=== PATIENT | female | born 1975 | race American Indian/Alaskan Native ===

== ENCOUNTER 2017-01-09 16:50 | Emergency (ER) | payer MEDICARE ==
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
[2017-01-09 18:39] LABS: Anion Gap 21 mmol/L; BUN/Creatinine Ratio 15; Blood Urea Nitrogen 9 mg/dL (7-17); Calcium 9.7 mg/dL (8.4-10.2); Carbon Dioxide 23 mmol/L (22-30); Chloride 100.6 mmol/L (98-107); Glucose 91 mg/dL (65-100); Potassium 3.9 mmol/L (3.6-5.0); Sodium 141 mmol/L (137-145)
[2017-01-09 18:48] LABS: Hemoglobin 13.6 gm/dl (10.1-14.3); Mean Corpuscular HGB Conc 34 % (30-34); Mean Corpuscular Hemoglobin 31 pg (28-32); Mean Corpuscular Volume 92 fl (79-97); Platelet Count 311 K/mm3 (140-440); Red Blood Count 4.34 M/mm3 (3.65-5.03); Red Cell Distribution Width 13.7 % (13.2-15.2); White Blood Count 5.4 K/mm3 (4.5-11.0)
[2017-01-10 05:29] LABS: Urine Drugs of Abuse Note Disclamer
[2017-01-10 05:48] LABS: Bacteria,Urine 4+ /HPF (Negative); Bilirubin,Urine NEG (Negative); Blood,Urine LG (Negative); Ketones,Urine TR mg/dL (Negative); Leukocyte Esterase,Urine NEG (Negative); Mucus,Urine 1+ /HPF; Nitrite,Urine POS (Negative); Urobilinogen,Urine < 2.0 mg/dL (<2.0)
[2017-01-10 05:49] LABS: Protein,Urine >500 mg/dL (Negative)
[2017-01-10 08:42] VITALS: BP 110/69
== END 2017-01-10 09:39 ==
LOC: ED 16:50
DX: T39.312A Poisoning by propionic acid derivatives, intentional self-harm, initial encounter (principal); T38.892A Poisoning by other hormones and synthetic substitutes, intentional self-harm, initial encounter; R45.851 Suicidal ideations; F32.9 Major depressive disorder, single episode, unspecified; J44.9 Chronic obstructive pulmonary disease, unspecified; Y92.89 Other specified places as the place of occurrence of the external cause
CPT/HCPCS: 36415; 80048; 80307; 81001; 81025; 85025; 99285; G0480; 80320

== ENCOUNTER 2017-01-20 10:19 | Inpatient (IN) | payer MEDICARE ==
--- NOTE | 2017-01-20 11:47 | Emergency Department Report ---
ED General Adult HPI - General Chief complaint: Extremity Injury, Lower Stated complaint: DVT Time Seen by Provider: 01/20/17 11:28 Source: patient Mode of arrival: Stretcher Limitations: No Limitations - History of Present Illness Initial comments: Patient is 41 years old female brought from [facility] for evaluation of right lower extremity DVT. Patient had bilateral lower extremity venous duplex ultrasound on 01/18/2017 which showed deep vein thrombosis involving the right popliteal vein. Patient has a below-knee amputation before and she is complaining of swelling in her right stoma. 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 - Related Data Home Medications Medication Instructions Recorded Confirmed Last Taken Unobtainable 01/09/17 01/09/17 Unknown Allergies Allergy/AdvReac Type Severity Reaction Status Date / Time haloperidol [From Haldol] Allergy Anaphylaxis Verified 01/09/17 17:42 ziprasidone [From Geodon] Allergy Anaphylaxis Verified 01/20/17 10:47 ED Review of Systems ROS: Stated complaint: DVT Other details as noted in HPI Comment: All other systems reviewed and negative Constitutional: denies: chills, diaphoresis Respiratory: cough, shortness of breath. denies: orthopnea, SOB with exertion Cardiovascular: denies: chest pain, palpitations, dyspnea on exertion Gastrointestinal: denies: abdominal pain, nausea, vomiting, diarrhea, constipation, hematemesis Neurological: denies: headache, numbness, paresthesias ED Past Medical Hx - Past Medical History Hx COPD: Yes Additional medical history: multiple sclerosis osteomyelytis - Surgical History Additional Surgical History: right bka - Social History Smoking Status: Current Every Day Smoker Substance Use Type: Alcohol, Cocaine, Marijuana - Medications Home Medications: Home Medications Medication Instructions Recorded Confirmed Last Taken Type Unobtainable 01/09/17 01/09/17 Unknown History ED Physical Exam - General Limitations: No Limitations General appearance: alert, in no apparent distress - Head Head exam: Present: atraumatic, normocephalic, normal inspection - Eye Eye exam: Present: normal appearance, PERRL Pupils: Present: normal accommodation - ENT ENT exam: Present: normal exam, normal orophraynx, mucous membranes moist - Neck Neck exam: Present: normal inspection, full ROM. Absent: tenderness - Respiratory Respiratory exam: Present: normal lung sounds bilaterally. Absent: respiratory distress, wheezes, rales, rhonchi, stridor, chest wall tenderness, accessory muscle use, decreased breath sounds, prolonged expiratory - Cardiovascular Cardiovascular Exam: Present: regular rate, normal rhythm, normal heart sounds - GI/Abdominal GI/Abdominal exam: Present: soft, normal bowel sounds. Absent: distended, tenderness, guarding, rebound, rigid, organomegaly, mass, bruit, pulsatile mass , hernia - Extremities Exam Extremities exam: Present: normal inspection, full ROM, normal capillary refill. Absent: tenderness - Back Exam Back exam: Present: normal inspection. Absent: CVA tenderness (R), CVA tenderness (L) - Neurological Exam Neurological exam: Present: alert, oriented X3, CN II-XII intact - Psychiatric Psychiatric exam: Present: depressed - Skin Skin exam: Present: warm, intact, normal color ED Course Vital Signs 01/20/17 10:47 Temperature 98.6 F Pulse Rate 78 Respiratory 20 Rate Blood Pressure 111/67 O2 Sat by Pulse 97 Oximetry ED Medical Decision Making - Lab Data Result diagrams: 01/20/17 12:27 - Radiology Data Radiology results: report reviewed Chest x-ray showed no acute abnormality, right knee x-ray showed no acute abnormality. - Medical Decision Making Discussed with Dr. Giron, I presented the patient to him, he agreed to admit to his service. Critical care attestation.: If time is entered above; I have spent that time in minutes in the direct care of this critically ill patient, excluding procedure time. ED Disposition Clinical Impression: DVT (deep venous thrombosis), Right knee injury Disposition: - OP ADMIT IP TO THIS HOSP Is pt being admited?: Yes Condition: Stable Referrals: FLORENTINO AJ MD [Primary Care Provider] - 3-5 Days
--- NOTE | 2017-01-20 12:05 | XRay Report ---
Single view chest: History: Shortness of breath, cough. Findings: Normal cardiomediastinal silhouette. Trachea is midline. No consolidation, pneumothorax or pleural effusion. Impression: No acute cardiopulmonary findings.
--- NOTE | 2017-01-20 12:07 | XRay Report ---
Right knee 2 views: History: Fall. Findings: Patient is below-knee amputation. No periosteal reaction or acute fracture. Stable stump. Arthritic changes knee joint. Impression: No evidence of acute fracture. Arthritic changes right knee.
[2017-01-20 12:48] LABS: Basophils % (Auto) 1.1 % (0.0-1.8); Eosinophils % (Auto) 3.5 % (0.0-4.3); Hematocrit 33.3 % (30.3-42.9); Hemoglobin 11.2 gm/dl (10.1-14.3); Mean Corpuscular HGB Conc 34 % (30-34); Mean Corpuscular Hemoglobin 31 pg (28-32); Mean Corpuscular Volume 91 fl (79-97); Platelet Count 262 K/mm3 (140-440); Red Blood Count 3.67 M/mm3 (3.65-5.03); Red Cell Distribution Width 13.6 % (13.2-15.2); White Blood Count 6.5 K/mm3 (4.5-11.0)
[2017-01-20 13:03] LABS: INR 0.95 (0.87-1.13)
[2017-01-20 13:04] LABS: Partial Thromboplastin Time 31.7 Sec. (24.2-36.6)
[2017-01-20] MEDS ORDERED: LOVENOX SUB-Q ONE ×2 (13:27→14:44)
[2017-01-20 13:37] LABS: Alanine Aminotransferase 18 units/L (7-56); Albumin 3.8 g/dL (3.9-5); Albumin/Globulin Ratio 1.3 %; Alkaline Phosphatase 58 units/L (35-129); Anion Gap 18 mmol/L; BUN/Creatinine Ratio 29; Bilirubin,Total < 0.20 mg/dL (0.1-1.2); Blood Urea Nitrogen 23 mg/dL (7-17); Calcium 8.8 mg/dL (8.4-10.2); Carbon Dioxide 22 mmol/L (22-30); Chloride 102.1 mmol/L (98-107); Glucose 93 mg/dL (65-100); Potassium 4.3 mmol/L (3.6-5.0); Sodium 138 mmol/L (137-145); Total Protein 6.8 g/dL (6.3-8.2)
[2017-01-20] MEDS ORDERED: HABITROL TD ONE (15:13)
[2017-01-20] MEDS ORDERED: ZOFRAN IV PRN (16:16)
[2017-01-20] MEDS ORDERED: DULCOLAX PR PRN (16:16)
[2017-01-20] MEDS ORDERED: MILK OF MAGNESIA PO PRN (16:16)
[2017-01-20] MEDS ORDERED: TYLENOL PO PRN (16:16)
--- NOTE | 2017-01-20 16:16 | History and Physical Report ---
History of Present Illness Date of examination: 01/20/17 Date of admission: 01/20/17 13:29 Chief complaint: chief complaint:Right lower extremity swelling. History of present illness: history of present illness: 41-year-old male with history of recurrent DVTs- apparently 8 in the left lower extremity and 9 in the right lower extremity and a pulmonary embolism sent from [facility] ([facility]) for possible right lower extremity deep vein thrombosis. No shortness of breath. Patient had a right BKA because of the recurrent clots in the lower extremity. No recent travel. Patient was admitted to [facility] for depression and suicidal ideation. Patient has a tendency to cut himself on the forearms. Patient smokes a pack a day. No fever no chills. Past History Past Medical History: COPD, other (recurrent DVTs, multiple sclerosis, osteomyelitis.depression and suicidal ideations) Past Surgical History: Other (right BKA) Social history: lives with family, smoking (smokes pack a day), alcohol abuse ( also does marijuana and cocaine), full code Family history: hypertension Medications and Allergies Allergies Allergy/AdvReac Type Severity Reaction Status Date / Time haloperidol [From Haldol] Allergy Anaphylaxis Verified 01/09/17 17:42 ziprasidone [From Geodon] Allergy Anaphylaxis Verified 01/20/17 10:47 Home Medications Medication Instructions Recorded Confirmed Last Taken Type Diazepam 2.5 mg PO Q4H PRN 01/20/17 01/20/17 01/19/17 History Docusate Sodium [Colace CAP] 100 mg PO DAILY PRN 01/20/17 01/20/17 01/16/17 History Famotidine [Pepcid] 20 mg PO QHS 01/20/17 01/20/17 01/18/17 History Gabapentin [Neurontin] 400 mg PO BID 01/20/17 01/20/17 01/19/17 History Hydroxyzine HCl [hydrOXYzine] 50 mg PO Q8H PRN 01/20/17 01/20/17 01/15/17 History Ibuprofen [Motrin] 800 mg PO TID PRN MDD 2400MG 01/20/17 01/20/17 01/18/17 History Melatonin 10 mg PO QHS 01/20/17 01/20/17 01/18/17 History Meloxicam [Mobic] 15 mg PO DAILY 1201/20/17 01/19/17 History Multivit-Min/Iron Fum/Folic AC 1 each PO DAILY 01/20/17 01/20/17 01/18/17 History [Uhudo-Ihzpfyi-Cqxguajk Tablet] Olanzapine [OLANZapine] 5 mg PO Q8H PRN 01/20/17 01/20/17 01/18/17 History Olanzapine [Zyprexa] mg PO Q8HR 01/20/17 Unknown History Paroxetine HCl [Paxil] 30 mg PO DAILY 01/20/17 01/20/17 01/19/17 History Prazosin [Minipress] 2 mg PO QHS 01/20/17 01/20/17 01/18/17 History Sulfamethoxazole/Trimethoprim 1 each PO BID 01/20/17 01/20/17 01/19/17 History [Bactrim DS TAB] Tramadol HCl 50 mg PO TID 01/20/17 01/20/17 01/18/17 History hydrOXYzine PAMOATE [Vistaril] 50 mg PO TID 01/20/17 01/20/17 01/19/17 History Review of Systems All systems: negative Exam - Physical Exam Narrative exam: Middle-age male lying in bed comfortably. - Constitutional Vitals: Temp Pulse Resp BP Pulse Ox 98.6 F 82 18 132/87 99 01/20/17 10:47 01/20/17 15:33 01/20/17 15:33 01/20/17 15:33 01/20/17 15:33 General appearance: Present: no acute distress, well-nourished - EENT Eyes: Present: PERRL ENT: hearing intact, clear oral mucosa - Neck Neck: Present: supple, normal ROM - Respiratory Respiratory effort: normal Respiratory: bilateral: CTA - Cardiovascular Heart rate: 76 Rhythm: regular Heart Sounds: Present: S1 & S2. Absent: rub, click - Extremities Extremities: no ischemia, pulses intact, pulses symmetrical, No edema, abnormal (swelling of the right thigh present. Right BKA) Extremity abnormal: other (right BKA) Peripheral Pulses: within normal limits - Abdominal General gastrointestinal: Present: soft, non-tender, non-distended, normal bowel sounds Female genitourinary: Present: normal - Rectal Rectal Exam: deferred - Integumentary Integumentary: Present: clear, warm, dry - Musculoskeletal Musculoskeletal: gait normal, strength equal bilaterally - Psychiatric Psychiatric: appropriate mood/affect, intact judgment & insight - Neurologic Neurologic: CNII-XII intact, moves all extremities - Allied Health Allied health notes reviewed: nursing, case management Results - Labs CBC & Chem 7: 01/20/17 12:27 01/20/17 12:34 Labs: Laboratory Last Values WBC 6.5 K/mm3 (4.5-11.0) 01/20/17 12: RBC 3.67 M/mm3 (3.65-5.03) 01/20/17 12:27 Hgb 11.2 gm/dl (10.1-14.3) 01/20/17 12: Hct 33.3 % (30.3-42.9) 01/20/17 12: MCV 91 fl (79-97) 01/20/17 12: MCH 31 pg (28-32) 01/20/17 12: MCHC 34 % (30-34) 01/20/17 12: RDW 13.6 % (13.2-15.2) 01/20/17 12:27 Plt Count 262 K/mm3 (140-440) 01/20/17 12:27 Lymph % (Auto) 39.0 % (13.4-35.0) H 01/20/17 12:27 [place] % (Auto) 6.1 % (0.0-7.3) 01/20/17 12:27 Eos % (Auto) 3.5 % (0.0-4.3) 01/20/17 12:27 Baso % (Auto) 1.1 % (0.0-1.8) 01/20/17 12:27 Lymph # 2.5 K/mm3 (1.2-5.4) 01/20/17 12:27 [place] # 0.4 K/mm3 (0.0-0.8) 01/20/17 12:27 Eos # 0.2 K/mm3 (0.0-0.4) 01/20/17 12:27 Baso # 0.1 K/mm3 (0.0-0.1) 01/20/17 12:27 Seg Neutrophils % 50.3 % (40.0-70.0) 01/20/17 12:27 Seg Neutrophils # 3.3 K/mm3 (1.8-7.7) 01/20/17 12:27 PT 13.1 Sec. (12.2-14.9) 01/20/17 12:34 INR 0.95 (0.87-1.13) 01/20/17 12:34 APTT 31.7 Sec. (24.2-36.6) 01/20/17 12:34 Sodium 138 mmol/L (137-145) 01/20/17 12:34 Potassium 4.3 mmol/L (3.6-5.0) 01/20/17 12:34 Chloride 102.1 mmol/L (98-107) 01/20/17 12:34 Carbon Dioxide 22 mmol/L (22-30) 01/20/17 12:34 Anion Gap 18 mmol/L 01/20/17 12:34 BUN 23 mg/dL (7-17) H 01/20/17 12:34 Creatinine 0.8 mg/dL (0.7-1.2) 01/20/17 12:34 Estimated GFR > 60 ml/min 01/20/17 12:34 BUN/Creatinine Ratio 29 % 01/20/17 12:34 Glucose 93 mg/dL (65-100) 01/20/17 12:34 POC Glucose 67 (70-105) L 01/20/17 11:38 Calcium 8.8 mg/dL (8.4-10.2) 01/20/17 12:34 Total Bilirubin < 0.20 mg/dL (0.1-1.2) 01/20/17 12:34 AST 21 units/L (5-40) 01/20/17 12:34 ALT 18 units/L (7-56) 01/20/17 12:34 Alkaline Phosphatase 58 units/L (35-129) 01/20/17 12:34 Total Protein 6.8 g/dL (6.3-8.2) 01/20/17 12:34 Albumin 3.8 g/dL (3.9-5) L 01/20/17 12:34 Albumin/Globulin Ratio 1.3 % 01/20/17 12:34 - Imaging and Cardiology Venous US: report reviewed (right lower extremity DVT-report from [facility] facility ) Assessment and Plan Advance Directives: Yes (full code) VTE prophylaxis?: Chemical Plan of care discussed with patient/family: Yes - Patient Problems (1) DVT (deep venous thrombosis) Current Visit: Yes Status: Acute Qualifiers: DVT location: lower extremity Laterality: right Plan to address problem: Patient started on Lovenox 100 mg sq every 12 hours. Patient states that Eliquis and Xarelto do not work for him. HE WAS SUPPOSED TO BE ON LIFELONG Coumadin but was stopped by his primary care physician. Patient was counseled that he should get Coumadin lifelong.patient initiated on Coumadin with INR of goal 2.5-3.5. (2) Depression Current Visit: No Status: Chronic Qualifiers: Depression Type: unspecified Qualified Code(s): F32.9 - Major depressive disorder, single episode, unspecified Plan to address problem: continue his antidepressants (3) Suicidal ideations Current Visit: No Status: Acute Plan to address problem: mental health consult requested. Patient on 1013. (4) COPD (chronic obstructive pulmonary disease) Current Visit: Yes Status: Chronic Qualifiers: Emphysema type: unspecified Plan to address problem: patient on duo nebs when necessary (5) Nicotine dependence Current Visit: Yes Status: Chronic Qualifiers: Nicotine product type: cigarettes Plan to address problem: patient initiated on nicotine patch (6) DVT prophylaxis Current Visit: Yes Status: Acute Plan to address problem: patient already on Lovenox and Coumadin.
[2017-01-20] MEDS ORDERED: PERCOCET 5/325 PO PRN (16:17)
[2017-01-20] MEDS: MORPHINE IV PRN ×2 (18:00→22:41)
[2017-01-20] MEDS: NACL 0.45% 1000 ML 1,000 ML IV SCH (18:00)
[2017-01-20] MEDS ORDERED: MOTRIN PO PRN (21:31)
[2017-01-20] MEDS ORDERED: NON-FORMULARY (Hydroxyzine Hcl [Hydroxyzine] 50 MG) PO PRN (21:31)
[2017-01-20] MEDS ORDERED: COLACE PO PRN (21:31)
[2017-01-20] MEDS ORDERED: ATARAX PO PRN (21:38)
[2017-01-20] MEDS: VALIUM PO PRN (22:49)
[2017-01-20] MEDS: PEPCID PO SCH (22:49)
[2017-01-20] MEDS: NEURONTIN PO SCH (22:49)
[2017-01-20] MEDS: MINIPRESS PO SCH (23:08)
[2017-01-20] MEDS: COUMADIN PO SCH (23:08)
[2017-01-21] MEDS: MORPHINE IV PRN ×5 (03:48→19:41)
[2017-01-21 05:55] LABS: Hematocrit 32.1 % (30.3-42.9); Hemoglobin 10.9 gm/dl (10.1-14.3); Mean Corpuscular HGB Conc 34 % (30-34); Mean Corpuscular Hemoglobin 31 pg (28-32); Mean Corpuscular Volume 92 fl (79-97); Platelet Count 236 K/mm3 (140-440); Red Blood Count 3.49 M/mm3 (3.65-5.03); Red Cell Distribution Width 13.8 % (13.2-15.2); White Blood Count 5.8 K/mm3 (4.5-11.0)
[2017-01-21 06:46] LABS: Anisocytosis 1+; Basophils % (Manual) 0 % (0.0-1.8); Blastocytes % (Manual) 0 %; Ovalocytes 1+; Target Cells Few
[2017-01-21 06:47] LABS: Burr Cells Few; Diff Status Complete
[2017-01-21] MEDS: VALIUM PO PRN ×3 (08:11→19:40)
--- NOTE | 2017-01-21 08:26 | Progress Note ---
<ANASTASIA RAMOS R - Last Filed: 01/21/17 22:17> Assessment and Plan Assessment and plan: I saw and evaluated the patient. I agree with the findings and the plan of care as documented in the Nurse Practitioner's~note. Hospitalist Physical - Constitutional Vitals: Temp Pulse Resp BP Pulse Ox 98.0 F 69 20 104/50 100 01/21/17 15:04 01/21/17 07:30 01/21/17 15:04 01/21/17 15:04 01/21/17 09:14 Results - Labs CBC & Chem 7: 01/21/17 05:39 01/20/17 12:34 Labs: Laboratory Last Values WBC 5.8 K/mm3 (4.5-11.0) 01/21/17 05:39 RBC 3.49 M/mm3 (3.65-5.03) L 01/21/17 05:39 Hgb 10.9 gm/dl (10.1-14.3) 01/21/17 05:39 Hct 32.1 % (30.3-42.9) 01/21/17 05:39 MCV 92 fl (79-97) 01/21/17 05:39 MCH 31 pg (28-32) 01/21/17 05:39 MCHC 34 % (30-34) 01/21/17 05:39 RDW 13.8 % (13.2-15.2) 01/21/17 05:39 Plt Count 236 K/mm3 (140-440) 01/21/17 05:39 Lymph % (Auto) Controller Repairer And Tester 01/21/17 05:39 [place] % (Auto) 6.1 % (0.0-7.3) 01/20/17 12:27 Eos % (Auto) 3.5 % (0.0-4.3) 01/20/17 12:27 Baso % (Auto) 1.1 % (0.0-1.8) 01/20/17 12:27 Lymph # 2.5 K/mm3 (1.2-5.4) 01/20/17 12:27 [place] # 0.4 K/mm3 (0.0-0.8) 01/20/17 12:27 Eos # 0.2 K/mm3 (0.0-0.4) 01/20/17 12:27 Baso # 0.1 K/mm3 (0.0-0.1) 01/20/17 12:27 Add Manual Diff Complete 01/21/17 05:39 Total Counted 100 01/21/17 05:39 Seg Neutrophils % Controller Repairer And Tester 01/21/17 05:39 Seg Neuts % (Manual) 34.0 % (40.0-70.0) L 01/21/17 05:39 Band Neutrophils % 0 % 01/21/17 05:39 Lymphocytes % (Manual) 57.0 % (13.4-35.0) H 01/21/17 05:39 Reactive Lymphs % (Man) 0 % 01/21/17 05:39 Monocytes % (Manual) 2.0 % (0.0-7.3) 01/21/17 05:39 Eosinophils % (Manual) 7.0 % (0.0-4.3) H 01/21/17 05:39 Basophils % (Manual) 0 % (0.0-1.8) 01/21/17 05:39 Metamyelocytes % 0 % 01/21/17 05:39 Myelocytes % 0 % 01/21/17 05:39 Promyelocytes % 0 % 01/21/17 05:39 Blast Cells % 0 % 01/21/17 05:39 Nucleated RBC % Not Reportable 01/21/17 05:39 Seg Neutrophils # 3.3 K/mm3 (1.8-7.7) 01/20/17 12:27 Seg Neutrophils # Man 2.0 K/mm3 (1.8-7.7) 01/21/17 05:39 Band Neutrophils # 0.0 K/mm3 01/21/17 05:39 Lymphocytes # (Manual) 3.3 K/mm3 (1.2-5.4) 01/21/17 05:39 Abs React Lymphs (Man) 0.0 K/mm3 01/21/17 05:39 Monocytes # (Manual) 0.1 K/mm3 (0.0-0.8) 01/21/17 05:39 Eosinophils # (Manual) 0.4 K/mm3 (0.0-0.4) 01/21/17 05:39 Basophils # (Manual) 0.0 K/mm3 (0.0-0.1) 01/21/17 05:39 Metamyelocytes # 0.0 K/mm3 01/21/17 05:39 Myelocytes # 0.0 K/mm3 01/21/17 05:39 Promyelocytes # 0.0 K/mm3 01/21/17 05:39 Blast Cells # 0.0 K/mm3 01/21/17 05:39 WBC Morphology Not Reportable 01/21/17 05:39 Hypersegmented Neuts Not Reportable 01/21/17 05:39 Hyposegmented Neuts Not Reportable 01/21/17 05:39 Hypogranular Neuts Not Reportable 01/21/17 05:39 Smudge Cells Not Reportable 01/21/17 05:39 Toxic Granulation Not Reportable 01/21/17 05:39 Toxic Vacuolation Not Reportable 01/21/17 05:39 Dohle Bodies Not Reportable 01/21/17 05:39 Pelger-Huet Anomaly Not Reportable 01/21/17 05:39 Shauna Rods Not Reportable 01/21/17 05:39 Platelet Estimate Appears normal 01/21/17 05:39 Clumped Platelets Not Reportable 01/21/17 05:39 Plt Clumps, EDTA Not Reportable 01/21/17 05:39 Large Platelets Not Reportable 01/21/17 05:39 Giant Platelets Not Reportable 01/21/17 05:39 Platelet Satelliting Not Reportable 01/21/17 05:39 Plt Morphology Comment Not Reportable 01/21/17 05:39 RBC Morphology Not Reportable 01/21/17 05:39 Dimorphic RBCs Not Reportable 01/21/17 05:39 Polychromasia Not Reportable 01/21/17 05:39 Hypochromasia Not Reportable 01/21/17 05:39 Poikilocytosis Not Reportable 01/21/17 05:39 Anisocytosis 1+ 01/21/17 05:39 Microcytosis Not Reportable 01/21/17 05:39 Macrocytosis Not Reportable 01/21/17 05:39 Spherocytes Not Reportable 01/21/17 05:39 Pappenheimer Bodies Not Reportable 01/21/17 05:39 Sickle Cells Not Reportable 01/21/17 05:39 Target Cells Few 01/21/17 05:39 Tear Drop Cells Not Reportable 01/21/17 05:39 Ovalocytes 1+ 01/21/17 05:39 Helmet Cells Not Reportable 01/21/17 05:39 Funes-Pickett Bodies Not Reportable 01/21/17 05:39 [place] Rings Not Reportable 01/21/17 05:39 [place] Cells Few 01/21/17 05:39 Bite Cells Not Reportable 01/21/17 05:39 Crenated Cell Not Reportable 01/21/17 05:39 Elliptocytes Not Reportable 01/21/17 05:39 Acanthocytes (Spur) Not Reportable 01/21/17 05:39 Rouleaux Not Reportable 01/21/17 05:39 Hemoglobin C Crystals Not Reportable 01/21/17 05:39 Schistocytes Not Reportable 01/21/17 05:39 Malaria parasites Not Reportable 01/21/17 05:39 Lai Bodies Not Reportable 01/21/17 05:39 Hem Pathologist Commnt No 01/21/17 05:39 PT 13.1 Sec. (12.2-14.9) 01/20/17 12:34 INR 0.95 (0.87-1.13) 01/20/17 12:34 APTT 31.7 Sec. (24.2-36.6) 01/20/17 12:34 Sodium 138 mmol/L (137-145) 01/20/17 12:34 Potassium 4.3 mmol/L (3.6-5.0) 01/20/17 12:34 Chloride 102.1 mmol/L (98-107) 01/20/17 12:34 Carbon Dioxide 22 mmol/L (22-30) 01/20/17 12:34 Anion Gap 18 mmol/L 01/20/17 12:34 BUN 23 mg/dL (7-17) H 01/20/17 12:34 Creatinine 0.8 mg/dL (0.7-1.2) 01/20/17 12:34 Estimated GFR > 60 ml/min 01/20/17 12:34 BUN/Creatinine Ratio 29 % 01/20/17 12:34 Glucose 93 mg/dL (65-100) 01/20/17 12:34 POC Glucose 77 (70-105) 01/21/17 21:40 Calcium 8.8 mg/dL (8.4-10.2) 01/20/17 12:34 Total Bilirubin < 0.20 mg/dL (0.1-1.2) 01/20/17 12:34 AST 21 units/L (5-40) 01/20/17 12:34 ALT 18 units/L (7-56) 01/20/17 12:34 Alkaline Phosphatase 58 units/L (35-129) 01/20/17 12:34 Total Protein 6.8 g/dL (6.3-8.2) 01/20/17 12:34 Albumin 3.8 g/dL (3.9-5) L 01/20/17 12:34 Albumin/Globulin Ratio 1.3 % 01/20/17 12:34 <JOCELYN FRANCOIS - Last Filed: 01/22/17 11:28> Assessment and Plan Assessment and plan: Patient is a 41-year-old male with history of recurrent DVTs-apparently 8 in the left lower extremity and 9 in the right lower extremity and a pulmonary embolism sent from [facility] for possible right lower extremity deep vein thrombosis. 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 Continue on Coumadin with INR of goal 2.5-3.5. Depression Continue his antidepressants Suicidal ideations mental health consult requested. Patient on 1013. COPD (chronic obstructive pulmonary disease) Stable Patient on duo nebs when necessary Tobacco abuse Continue on nicotine patch Smoking cessation counseling done;patient strongly advised to quit. Hospitalist Physical - Constitutional Vitals: Temp Pulse Resp BP Pulse Ox 98.4 F 77 16 102/47 99 01/20/17 21:07 01/20/17 21:07 01/20/17 21:07 01/20/17 21:07 01/20/17 22:04 General appearance: Present: no acute distress, well-nourished - EENT Eyes: Present: PERRL ENT: hearing intact - Neck Neck: Present: supple - Respiratory Respiratory effort: normal Respiratory: bilateral: CTA - Cardiovascular Rhythm: regular Heart Sounds: Present: S1 & S2 - Extremities Extremity abnormal: other (Right BKA) - Abdominal General gastrointestinal: soft, non-tender - Integumentary Integumentary: Present: clear, warm, dry - Psychiatric Psychiatric: agitated, other (anxious ) - Neurologic Neurologic: CNII-XII intact - Allied Health Allied health notes reviewed: nursing Results - Labs CBC & Chem 7: 01/21/17 05:39 01/20/17 12:34 Labs: Laboratory Last Values WBC 5.8 K/mm3 (4.5-11.0) 01/21/17 05:39 RBC 3.49 M/mm3 (3.65-5.03) L 01/21/17 05:39 Hgb 10.9 gm/dl (10.1-14.3) 01/21/17 05:39 Hct 32.1 % (30.3-42.9) 01/21/17 05:39 MCV 92 fl (79-97) 01/21/17 05:39 MCH 31 pg (28-32) 01/21/17 05:39 MCHC 34 % (30-34) 01/21/17 05:39 RDW 13.8 % (13.2-15.2) 01/21/17 05:39 Plt Count 236 K/mm3 (140-440) 01/21/17 05:39 Lymph % (Auto) Controller Repairer And Tester 01/21/17 05:39 [place] % (Auto) 6.1 % (0.0-7.3) 01/20/17 12:27 Eos % (Auto) 3.5 % (0.0-4.3) 01/20/17 12:27 Baso % (Auto) 1.1 % (0.0-1.8) 01/20/17 12:27 Lymph # 2.5 K/mm3 (1.2-5.4) 01/20/17 12:27 [place] # 0.4 K/mm3 (0.0-0.8) 01/20/17 12:27 Eos # 0.2 K/mm3 (0.0-0.4) 01/20/17 12:27 Baso # 0.1 K/mm3 (0.0-0.1) 01/20/17 12:27 Add Manual Diff Complete 01/21/17 05:39 Total Counted 100 01/21/17 05:39 Seg Neutrophils % Controller Repairer And Tester 01/21/17 05:39 Seg Neuts % (Manual) 34.0 % (40.0-70.0) L 01/21/17 05:39 Band Neutrophils % 0 % 01/21/17 05:39 Lymphocytes % (Manual) 57.0 % (13.4-35.0) H 01/21/17 05:39 Reactive Lymphs % (Man) 0 % 01/21/17 05:39 Monocytes % (Manual) 2.0 % (0.0-7.3) 01/21/17 05:39 Eosinophils % (Manual) 7.0 % (0.0-4.3) H 01/21/17 05:39 Basophils % (Manual) 0 % (0.0-1.8) 01/21/17 05:39 Metamyelocytes % 0 % 01/21/17 05:39 Myelocytes % 0 % 01/21/17 05:39 Promyelocytes % 0 % 01/21/17 05:39 Blast Cells % 0 % 01/21/17 05:39 Nucleated RBC % Not Reportable 01/21/17 05:39 Seg Neutrophils # 3.3 K/mm3 (1.8-7.7) 01/20/17 12:27 Seg Neutrophils # Man 2.0 K/mm3 (1.8-7.7) 01/21/17 05:39 Band Neutrophils # 0.0 K/mm3 01/21/17 05:39 Lymphocytes # (Manual) 3.3 K/mm3 (1.2-5.4) 01/21/17 05:39 Abs React Lymphs (Man) 0.0 K/mm3 01/21/17 05:39 Monocytes # (Manual) 0.1 K/mm3 (0.0-0.8) 01/21/17 05:39 Eosinophils # (Manual) 0.4 K/mm3 (0.0-0.4) 01/21/17 05:39 Basophils # (Manual) 0.0 K/mm3 (0.0-0.1) 01/21/17 05:39 Metamyelocytes # 0.0 K/mm3 01/21/17 05:39 Myelocytes # 0.0 K/mm3 01/21/17 05:39 Promyelocytes # 0.0 K/mm3 01/21/17 05:39 Blast Cells # 0.0 K/mm3 01/21/17 05:39 WBC Morphology Not Reportable 01/21/17 05:39 Hypersegmented Neuts Not Reportable 01/21/17 05:39 Hyposegmented Neuts Not Reportable 01/21/17 05:39 Hypogranular Neuts Not Reportable 01/21/17 05:39 Smudge Cells Not Reportable 01/21/17 05:39 Toxic Granulation Not Reportable 01/21/17 05:39 Toxic Vacuolation Not Reportable 01/21/17 05:39 Dohle Bodies Not Reportable 01/21/17 05:39 Pelger-Huet Anomaly Not Reportable 01/21/17 05:39 Shauna Rods Not Reportable 01/21/17 05:39 Platelet Estimate Appears normal 01/21/17 05:39 Clumped Platelets Not Reportable 01/21/17 05:39 Plt Clumps, EDTA Not Reportable 01/21/17 05:39 Large Platelets Not Reportable 01/21/17 05:39 Giant Platelets Not Reportable 01/21/17 05:39 Platelet Satelliting Not Reportable 01/21/17 05:39 Plt Morphology Comment Not Reportable 01/21/17 05:39 RBC Morphology Not Reportable 01/21/17 05:39 Dimorphic RBCs Not Reportable 01/21/17 05:39 Polychromasia Not Reportable 01/21/17 05:39 Hypochromasia Not Reportable 01/21/17 05:39 Poikilocytosis Not Reportable 01/21/17 05:39 Anisocytosis 1+ 01/21/17 05:39 Microcytosis Not Reportable 01/21/17 05:39 Macrocytosis Not Reportable 01/21/17 05:39 Spherocytes Not Reportable 01/21/17 05:39 Pappenheimer Bodies Not Reportable 01/21/17 05:39 Sickle Cells Not Reportable 01/21/17 05:39 Target Cells Few 01/21/17 05:39 Tear Drop Cells Not Reportable 01/21/17 05:39 Ovalocytes 1+ 01/21/17 05:39 Helmet Cells Not Reportable 01/21/17 05:39 Funes-Pickett Bodies Not Reportable 01/21/17 05:39 [place] Rings Not Reportable 01/21/17 05:39 [place] Cells Few 01/21/17 05:39 Bite Cells Not Reportable 01/21/17 05:39 Crenated Cell Not Reportable 01/21/17 05:39 Elliptocytes Not Reportable 01/21/17 05:39 Acanthocytes (Spur) Not Reportable 01/21/17 05:39 Rouleaux Not Reportable 01/21/17 05:39 Hemoglobin C Crystals Not Reportable 01/21/17 05:39 Schistocytes Not Reportable 01/21/17 05:39 Malaria parasites Not Reportable 01/21/17 05:39 Lai Bodies Not Reportable 01/21/17 05:39 Hem Pathologist Commnt No 01/21/17 05:39 PT 13.1 Sec. (12.2-14.9) 01/20/17 12:34 INR 0.95 (0.87-1.13) 01/20/17 12:34 APTT 31.7 Sec. (24.2-36.6) 01/20/17 12:34 Sodium 138 mmol/L (137-145) 01/20/17 12:34 Potassium 4.3 mmol/L (3.6-5.0) 01/20/17 12:34 Chloride 102.1 mmol/L (98-107) 01/20/17 12:34 Carbon Dioxide 22 mmol/L (22-30) 01/20/17 12:34 Anion Gap 18 mmol/L 01/20/17 12:34 BUN 23 mg/dL (7-17) H 01/20/17 12:34 Creatinine 0.8 mg/dL (0.7-1.2) 01/20/17 12:34 Estimated GFR > 60 ml/min 01/20/17 12:34 BUN/Creatinine Ratio 29 % 01/20/17 12:34 Glucose 93 mg/dL (65-100) 01/20/17 12:34 POC Glucose 75 (70-105) 01/21/17 05:27 Calcium 8.8 mg/dL (8.4-10.2) 01/20/17 12:34 Total Bilirubin < 0.20 mg/dL (0.1-1.2) 01/20/17 12:34 AST 21 units/L (5-40) 01/20/17 12:34 ALT 18 units/L (7-56) 01/20/17 12:34 Alkaline Phosphatase 58 units/L (35-129) 01/20/17 12:34 Total Protein 6.8 g/dL (6.3-8.2) 01/20/17 12:34 Albumin 3.8 g/dL (3.9-5) L 01/20/17 12:34 Albumin/Globulin Ratio 1.3 % 01/20/17 12:34
[2017-01-21] MEDS ORDERED: NON-FORMULARY (Paroxetine Hcl [Paxil] 30 MG) PO SCH (10:00)
[2017-01-21] MEDS: LOVENOX SUB-Q SCH ×2 (10:42→22:17)
[2017-01-21] MEDS: PAXIL PO SCH (10:43)
[2017-01-21] MEDS: HABITROL TD SCH (10:43)
[2017-01-21] MEDS: NEURONTIN PO SCH ×3 (10:45→22:09)
[2017-01-21] MEDS: NACL 0.45% 1000 ML 1,000 ML IV SCH (10:45)
[2017-01-21] MEDS ORDERED: PNEUMOVAX 23 IM ONE (12:00)
[2017-01-21] MEDS ORDERED: Fluarix Quad 2017-2018(36 MOS+ IM ONE (12:00)
[2017-01-21] MEDS: BACTRIM DS PO SCH ×2 (13:34→22:31)
[2017-01-21] MEDS: ULTRAM PO SCH ×2 (13:35→22:14)
[2017-01-21] MEDS ORDERED: TRAMADOL HCL 50 MG PO SCH (14:00)
[2017-01-21] MEDS: COUMADIN PO SCH (17:18)
[2017-01-21] MEDS: DIFLUCAN PO SCH (17:19)
[2017-01-21] MEDS ORDERED: NON-FORMULARY (Melatonin [Melatonin] 10 MG) PO SCH (22:00)
[2017-01-21] MEDS: MINIPRESS PO SCH (22:10)
[2017-01-21] MEDS: PEPCID PO SCH (22:15)
[2017-01-22] MEDS: VALIUM PO PRN ×4 (00:11→12:53)
[2017-01-22] MEDS: MORPHINE IV PRN ×4 (00:12→12:53)
[2017-01-22] MEDS ORDERED: D5/0.45NS 1,000 ML IV SCH (01:00)
[2017-01-22 05:54] LABS: INR 0.91 (0.87-1.13)
[2017-01-22 07:57] VITALS: BP 120/70
[2017-01-22] MEDS: ULTRAM PO SCH (09:57)
[2017-01-22] MEDS: LOVENOX SUB-Q SCH (09:57)
[2017-01-22] MEDS: HABITROL TD SCH (09:57)
[2017-01-22] MEDS: NEURONTIN PO SCH (09:57)
[2017-01-22] MEDS: BACTRIM DS PO SCH (09:57)
[2017-01-22] MEDS: PAXIL PO SCH (09:58)
[2017-01-22] MEDS: DIFLUCAN PO SCH (09:58)
--- NOTE | 2017-01-22 11:35 | Discharge Summary ---
<JOCELYN FRANCOIS - Last Filed: 01/25/17 07:42> Providers - Providers Date of Admission: 01/20/17 13:29 Date of discharge: 01/22/17 Attending physician: ANASTASIA RAMOS 01/20/17 Consult to Case Management [CONS] Routine Services Needed at Discharge: Home Health Services Notified:: jen 01/21/17 15:19 Consult to Mental Health [CONS] Urgent Reason For Exam: Needs to return to [facility] consult to:: Crisis Team Notified:: Yes Phone number called:: [phone] Was contact made?: Yes If yes, spoke with:: Dee Time called:: 15:20 01/21/17 15:22 Consult to Dietitian/Nutrition [CONS] Routine Physician Instructions: Reason For Exam: Reason for Consult: Diet education 01/21/17 15:29 Consult to Physician [CONS] Routine Consulting Provider: SUSIE BAILEY Reason For Exam: anticoagulation recommendation for chronic dvt Place consult to:: dr Bailey Notified:: office Phone number called:: Was contact made?: Yes If yes, spoke with:: jessica Time called:: 09:34 Primary care physician: FLORENTINO AJ Hospitalization Reason for admission: DVT Condition: Good Hospital course: Patient is a 41-year-old male with history of recurrent DVTs-apparently 8 in the left lower extremity and 9 in the right lower extremity and a pulmonary embolism sent from [facility] for possible right lower extremity deep vein thrombosis. Patient was diagnosed with deep venous thrombosis, Depression, Suicidal ideations,chronic obstructive pulmonary disease and Tobacco abuse. She was treated with blood thinners. She is being discharged on Coumadin and Lovenox bridge. Patient clinically improved and stable for discharge. Patient was advised to follow up INR level with her primary care. Discharge Diagnosed DVT (deep venous thrombosis) Depression Suicidal ideations COPD (chronic obstructive pulmonary disease) Tobacco abuse [facility] Time spent for discharge: 33 minutes Core Measure Documentation - Palliative Care Palliative Care/ Comfort Measures: Not Applicable - Core Measures Any of the following diagnoses?: none - VTE Discharge Requirements Deep Vein Thrombosis/Pulmonary Embolism Present on Admission: Yes Has pt received <5 days of overlap therapy or INR<2.0: Yes Anticoagulant overlap therapy prescribed at discharge: Yes Exam - Constitutional Vitals: Temp Pulse Resp BP Pulse Ox 97.6 F 99 H 20 120/70 98 01/22/17 07:45 01/22/17 07:45 01/22/17 07:45 01/22/17 07:45 01/22/17 07:45 General appearance: Present: no acute distress - EENT Eyes: Present: PERRL ENT: hearing intact - Neck Neck: Present: supple - Respiratory Respiratory effort: normal Respiratory: bilateral: CTA - Cardiovascular Rhythm: regular Heart Sounds: Present: S1 & S2 - Extremities Extremity abnormal: other (Right BKA) - Abdominal General gastrointestinal: Present: soft, non-tender Female genitourinary: Present: deferred - Rectal Rectal Exam: deferred - Integumentary Integumentary: Present: clear, warm, dry - Musculoskeletal Musculoskeletal: strength equal bilaterally - Psychiatric Psychiatric: agitated, other (Anxious) - Neurologic Neurologic: CNII-XII intact - Allied Health Allied health notes reviewed: nursing Plan Additional Instructions: Please Follow up INR level with hematology. Follow up with: FLORENTINO AJ MD [Primary Care Provider] - 3-5 Days SUSIE BAILEY MD [Staff Physician] - 7 Days Forms: Warfarin Discharge Instruction Prescriptions: Enoxaparin [Lovenox] 80 mg SUB-Q Q12HR 3 Days syringe Warfarin [Coumadin] 10 mg PO DAILY@1700 30 Days tablet <ANASTASIA RAMOS - Last Filed: 01/25/17 11:57> Providers - Providers Date of Admission: 01/20/17 13:29 Attending physician: ANASTASIA RAMOS 01/20/17 Consult to Case Management [CONS] Routine Services Needed at Discharge: Home Health Services Notified:: cw 01/21/17 15:19 Consult to Mental Health [CONS] Urgent Reason For Exam: Needs to return to [facility] consult to:: Crisis Team Notified:: Yes Phone number called:: [phone] Was contact made?: Yes If yes, spoke with:: Dee Time called:: 15:20 01/21/17 15:22 Consult to Dietitian/Nutrition [CONS] Routine Physician Instructions: Reason For Exam: Reason for Consult: Diet education 01/21/17 15:29 Consult to Physician [CONS] Routine Consulting Provider: SUSIE BAILEY Reason For Exam: anticoagulation recommendation for chronic dvt Place consult to:: dr Bailey Notified:: office Phone number called:: Was contact made?: Yes If yes, spoke with:: jessica Time called:: 09:34 Primary care physician: FLORENTINO AJ Hospitalization Hospital course: I saw and evaluated the patient. I agree with the findings and the plan of care as documented in the Nurse Practitioner's~note. Exam - Constitutional Vitals: Temp Pulse Resp BP Pulse Ox 97.6 F 99 H 20 120/70 98 01/22/17 07:45 01/22/17 07:45 01/22/17 07:45 01/22/17 07:45 01/22/17 07:45
--- NOTE | 2017-01-22 12:43 | Vascular Lab Report ---
LOWER EXTREMITY VENOUS DUPLEX: REASON FOR EXAM: deep venous thrombosis. COMMENTS ON THE RIGHT: Chronic, partially occluding thrombus is noted in the common femoral vein. The remaining veins visualized are freely compressible without evidence of internal echogenicity. Spontaneous and phasic flow is decreased proximally. COMMENTS ON THE LEFT: All veins visualized are freely compressible without evidence of internal echogenicity. Flow is spontaneous and phasic throughout. IMPRESSION: A small amount of chronic, partially occluding thrombus is seen in the right common femoral vein. No evidence of acute deep venous thrombosis in either lower extremity. Patient is noted to have a right below knee amputation.
[2017-01-22] MEDS ORDERED: COUMADIN PO SCH (17:00)
== END 2017-01-22 13:30 | DRG 300 ==
LOC: ED 10:19 → 3A 13:29
PROVIDERS: ADMIT Internal Medicine; ATTEND Internal Medicine
PROC: 3E0234Z Introduction of Serum, Toxoid and Vaccine into Muscle, Percutaneous Approach (ICD-10-PCS; principal; 2017-01-21)
DX: I82.411 Acute embolism and thrombosis of right femoral vein (principal); R45.851 Suicidal ideations; J44.9 Chronic obstructive pulmonary disease, unspecified; F32.9 Major depressive disorder, single episode, unspecified; F17.200 Nicotine dependence, unspecified, uncomplicated; F12.90 Cannabis use, unspecified, uncomplicated; F14.90 Cocaine use, unspecified, uncomplicated; S89.91XA Unspecified injury of right lower leg, initial encounter; X58.XXXA Exposure to other specified factors, initial encounter; G35 Multiple sclerosis; Z23 Encounter for immunization; Z89.511 Acquired absence of right leg below knee; Z72.89 Other problems related to lifestyle; Y93.9 Activity, unspecified; Y92.89 Other specified places as the place of occurrence of the external cause; Y99.8 Other external cause status; Z86.711 Personal history of pulmonary embolism; Z82.49 Family history of ischemic heart disease and other diseases of the circulatory system
CPT/HCPCS: 36415; 71010; 80053; 82962; 85007; 85025; 85610; 85730; 90471; 90686; 90732; 93970; 96372; G0008; G0009; J1650; J2270

== ENCOUNTER 2017-02-02 18:09 | Inpatient (IN) | payer MEDICARE ==
[2017-02-02] MEDS ORDERED: TORADOL IV ONE (20:43)
[2017-02-02] MEDS ORDERED: NACL 0.9% 1000 ML 1,000 ML IV ONE (20:44)
--- NOTE | 2017-02-02 20:49 | Emergency Department Report ---
ED Lower Extremity HPI - General Chief Complaint: Extremity Injury, Lower Stated Complaint: ABNORMAL LABS Time Seen by Provider: 02/02/17 20:06 Source: patient, EMS Mode of arrival: Stretcher Limitations: No Limitations - History of Present Illness Initial Comments: 41 YO FEMALE C/O RIGHT STUMP DVT FOR WHICH SHE WAS ADMITTED LAST WEEK. PT THEN SAID IT IS HER LEFT LEG THAT IS BOTHERING HER. IT IS MORE SWOLLEN THAN BEFORE AND HURTS. SHE HAS HAD 10 DVT IN HER RIGHT LEG AND IN HER LEFT LEG. SHE ALSO C /O OF A 5 DAY OLD RASH. MD Complaint: other (LEFT LEG PAIN,SWELLING, RASH) -: unknown (UNCLEAR HISTORY) Injury: Leg: Left Type of Injury: unknown Place: home Severity: moderate Associated Symptoms: swelling, unable to bear weight - Related Data Home Medications Medication Instructions Recorded Confirmed Last Taken Diazepam 2.5 mg PO Q4H PRN 01/20/17 01/20/17 01/19/17 Famotidine [Pepcid] 20 mg PO QHS 01/20/17 01/20/17 01/18/17 Gabapentin [Neurontin] 800 mg PO BID 01/20/17 01/20/17 01/19/17 Hydroxyzine HCl [hydrOXYzine] 50 mg PO Q8H PRN 01/20/17 01/20/17 01/15/17 Melatonin 10 mg PO QHS 01/20/17 01/20/17 01/18/17 Meloxicam [Mobic] 15 mg PO DAILY 01/20/17 01/20/17 01/19/17 Multivit-Min/Iron Fum/Folic AC 1 each PO DAILY 01/20/17 01/20/17 01/18/17 [Mhohb-Gbkucjn-Olduokhz Tablet] Olanzapine [OLANZapine] 5 mg PO Q8H PRN 01/20/17 01/20/17 01/18/17 Olanzapine [Zyprexa] 5 mg PO Q8HR 01/20/17 01/21/17 01/20/17 Prazosin [Minipress] 2 mg PO QHS 01/20/17 01/20/17 01/18/17 Sulfamethoxazole/Trimethoprim 1 each PO BID 01/20/17 01/20/17 01/19/17 [Bactrim DS TAB] Tramadol HCl 50 mg PO TID 01/20/17 01/20/17 01/18/17 hydrOXYzine PAMOATE [Vistaril] 50 mg PO TID 01/20/17 01/20/17 01/19/17 Previous Rx's Medication Instructions Recorded Last Taken Type Enoxaparin [Lovenox] 80 mg SUB-Q Q12HR 3 Days syringe 01/22/17 Unknown Rx Fluconazole [Diflucan TAB] 100 mg PO QDAY tablet 01/22/17 Unknown Rx OLANzapine [ZyPREXA] 5 mg PO Q8HR tablet 01/22/17 Unknown Rx PARoxetine [Paxil] 30 mg PO DAILY tablet 01/22/17 Unknown Rx Warfarin [Coumadin] 10 mg PO DAILY@1700 30 Days tablet 01/22/17 Unknown Rx traMADol [Ultram 50 MG tab] 50 mg PO TID tablet 01/22/17 Unknown Rx Allergies Allergy/AdvReac Type Severity Reaction Status Date / Time haloperidol [From Haldol] Allergy Anaphylaxis Verified 01/09/17 17:42 ziprasidone [From Geodon] Allergy Anaphylaxis Verified 01/20/17 10:47 ED Review of Systems ROS: Stated complaint: ABNORMAL LABS Other details as noted in HPI Constitutional: denies: chills, fever Eyes: denies: eye pain, eye discharge, vision change ENT: denies: ear pain, throat pain Respiratory: denies: cough, shortness of breath, wheezing Cardiovascular: denies: chest pain, palpitations Endocrine: no symptoms reported Gastrointestinal: denies: abdominal pain, nausea, diarrhea Genitourinary: denies: urgency, dysuria, discharge Musculoskeletal: joint swelling, arthralgia. denies: back pain Skin: denies: rash, lesions Neurological: denies: headache, weakness, paresthesias Psychiatric: denies: anxiety, depression Hematological/Lymphatic: denies: easy bleeding, easy bruising ED Past Medical Hx - Past Medical History Previous Medical History?: Yes Hx Diabetes: No (HYPOGLYCEMIA) Hx Deep Vein Thrombosis: Yes Hx Psychiatric Treatment: Yes (anxiety, PTSD,BIPOLAR) Hx Asthma: Yes Hx COPD: Yes Additional medical history: multiple sclerosis, osteomyelytis, clotting disorder - Surgical History Past Surgical History?: Yes Additional Surgical History: right bka - Family History Family history: other (CLOTTING DISORDER) - Social History Smoking Status: Current Some Day Smoker Substance Use Type: Alcohol, Cocaine, Marijuana - Medications Home Medications: Home Medications Medication Instructions Recorded Confirmed Last Taken Type Diazepam 2.5 mg PO Q4H PRN 01/20/17 01/20/17 01/19/17 History Famotidine [Pepcid] 20 mg PO QHS 01/20/17 01/20/17 01/18/17 History Gabapentin [Neurontin] 800 mg PO BID 01/20/17 01/20/17 01/19/17 History Hydroxyzine HCl [hydrOXYzine] 50 mg PO Q8H PRN 01/20/17 01/20/17 01/15/17 History Melatonin 10 mg PO QHS 01/20/17 01/20/17 01/18/17 History Meloxicam [Mobic] 15 mg PO DAILY 01/20/17 01/20/17 01/19/17 History Multivit-Min/Iron Fum/Folic AC 1 each PO DAILY 01/20/17 01/20/17 01/18/17 History [Rbpsl-Mixhvbm-Sdpvhzqu Tablet] Olanzapine [OLANZapine] 5 mg PO Q8H PRN 01/20/17 01/20/17 01/18/17 History Olanzapine [Zyprexa] 5 mg PO Q8HR 01/20/17 01/21/17 01/20/17 History Prazosin [Minipress] 2 mg PO QHS 01/20/17 01/20/17 01/18/17 History Sulfamethoxazole/Trimethoprim 1 each PO BID 01/20/17 01/20/17 01/19/17 History [Bactrim DS TAB] Tramadol HCl 50 mg PO TID 01/20/17 01/20/17 01/18/17 History hydrOXYzine PAMOATE [Vistaril] 50 mg PO TID 01/20/17 01/20/17 01/19/17 History Enoxaparin [Lovenox] 80 mg SUB-Q Q12HR 3 Days syringe 01/22/17 Unknown Rx Fluconazole [Diflucan TAB] 100 mg PO QDAY tablet 01/22/17 Unknown Rx OLANzapine [ZyPREXA] 5 mg PO Q8HR tablet 01/22/17 Unknown Rx PARoxetine [Paxil] 30 mg PO DAILY tablet 01/22/17 Unknown Rx Warfarin [Coumadin] 10 mg PO DAILY@1700 30 Days tablet 01/22/17 Unknown Rx traMADol [Ultram 50 MG tab] 50 mg PO TID tablet 01/22/17 Unknown Rx ED Physical Exam - General Limitations: No Limitations General appearance: alert, in no apparent distress - Head Head exam: Present: atraumatic, normocephalic - Eye Eye exam: Present: normal appearance, EOMI - ENT ENT exam: Present: mucous membranes moist - Neck Neck exam: Present: normal inspection - Respiratory Respiratory exam: Present: normal lung sounds bilaterally. Absent: respiratory distress - Cardiovascular Cardiovascular Exam: Present: regular rate, normal rhythm. Absent: systolic murmur, diastolic murmur, rubs, gallop - GI/Abdominal GI/Abdominal exam: Present: soft, normal bowel sounds - Expanded Lower Extremity Exam Left Lower Leg exam: Present: full ROM, tenderness (IN LEG CALF AREA), swelling ( FOOT 3+EDEMA), ecchymosis (RASH ON MEDIAL CALF) Foot/Toe exam: Present: full ROM Right Hip exam: Present: normal inspection, full ROM Upper Leg exam: Present: full ROM (BELOW THE KNEE AMPUTATION) - Back Exam Back exam: Present: normal inspection, full ROM - Neurological Exam Neurological exam: Present: alert, oriented X3 - Psychiatric Psychiatric exam: Present: normal affect, normal mood - Skin Skin exam: Present: warm, dry, intact, normal color. Absent: rash ED Course Vital Signs 02/02/17 19:35 Temperature 9.4 F L Pulse Rate 81 Respiratory 21 Rate Blood Pressure 91/60 [Left] O2 Sat by Pulse 100 Oximetry ED Lower Extremity MDM - Lab Data Result diagrams: 02/02/17 20:58 02/02/17 20:58 Critical care attestation.: If time is entered above; I have spent that time in minutes in the direct care of this critically ill patient, excluding procedure time. ED Disposition Clinical Impression: Subtherapeutic anticoagulation, Bipolar 1 disorder, depressed Leg pain, medial Qualifiers: Laterality: left Qualified Code(s): M79.605 - Pain in left leg Disposition: DC-09 OP ADMIT IP TO THIS HOSP Is pt being admited?: Yes Does the pt Need Aspirin: No Condition: Serious Referrals: FLORENTINO AJ MD [Primary Care Provider] - 3-5 Days Time of Disposition: 22:15 (CASE REVIEWED WITH DR CRUZ AND SHE WILL ADMIT THE PT TO THE HOSPITAL)
[2017-02-02 21:10] LABS: Basophils # (Auto) 0.1 K/mm3 (0.0-0.1); Eosinophils # (Auto) 0.2 K/mm3 (0.0-0.4); Eosinophils % (Auto) 3.4 % (0.0-4.3); Hematocrit 29.9 % (30.3-42.9); Hemoglobin 10.1 gm/dl (10.1-14.3); Lymphocytes # (Auto) 2.8 K/mm3 (1.2-5.4); Lymphocytes % (Auto) 43.4 % (13.4-35.0); Mean Corpuscular HGB Conc 34 % (30-34); Mean Corpuscular Hemoglobin 30 pg (28-32); Mean Corpuscular Volume 90 fl (79-97); Monocytes # (Auto) 0.5 K/mm3 (0.0-0.8); Monocytes % (Auto) 7.3 % (0.0-7.3); Platelet Count 277 K/mm3 (140-440); Red Blood Count 3.32 M/mm3 (3.65-5.03); Red Cell Distribution Width 13.4 % (13.2-15.2)
[2017-02-02 21:32] LABS: Alanine Aminotransferase 21 units/L (7-56); Albumin 3.5 g/dL (3.9-5); BUN/Creatinine Ratio 28; Blood Urea Nitrogen 14 mg/dL (7-17); Calcium 8.8 mg/dL (8.4-10.2); Hemolysis Index 4
[2017-02-02 21:39] LABS: INR 1.82 (0.87-1.13)
[2017-02-02 21:40] LABS: Partial Thromboplastin Time 46.8 Sec. (24.2-36.6)
[2017-02-03] MEDS ORDERED: NON-FORMULARY (Hydroxyzine Hcl [Hydroxyzine] 50 MG) PO PRN (00:09)
[2017-02-03] MEDS ORDERED: MORPHINE IV PRN (00:27)
[2017-02-03] MEDS ORDERED: ZOFRAN IV PRN (00:27)
[2017-02-03] MEDS ORDERED: DULCOLAX PR PRN (00:27)
[2017-02-03] MEDS ORDERED: TYLENOL PO PRN (00:27)
[2017-02-03] MEDS ORDERED: MILK OF MAGNESIA PO PRN (00:27)
--- NOTE | 2017-02-03 00:35 | History and Physical Report ---
History of Present Illness Chief complaint: left lower extremity swelling and pain History of present illness: 41-year-old woman with past medical history of asthma, multiple sclerosis, depression and multiple suicide attempts. The patient has apparently had greater than 10 DVTs, has had recurrent clotting. She was recently admitted in January and on January 21 ultrasound Doppler did show chronic DVT of the right common femoral vein and there were no acute DVT seen. She was resumed on anticoagulation. She is currently at an [facility] [place] receiving psychiatric care for suicidal ideation and major depression. She presents complaining now of left lower extremity swelling and pain. She denies shortness of breath, denies fevers, denies chills, denies cough, denies nausea, denies vomiting, denies dysuria, she is c/o L inner leg and inner thigh echymosis which was present before initiating warfarin, but she now says it is worse Past History Past Medical History: DVT, other (major depression, suicide attempts, asthma) Past Surgical History: Other (right BKA) Social history: smoking, alcohol abuse, other (cocaine and marijuana abuse) Family history: hypertension Medications and Allergies Allergies Allergy/AdvReac Type Severity Reaction Status Date / Time haloperidol [From Haldol] Allergy Anaphylaxis Verified 01/09/17 17:42 ziprasidone [From Geodon] Allergy Anaphylaxis Verified 01/20/17 10:47 Home Medications Medication Instructions Recorded Confirmed Last Taken Type Diazepam 2.5 mg PO Q4H PRN 01/20/17 02/03/17 01/19/17 History Famotidine [Pepcid] 20 mg PO QHS 01/20/17 02/03/17 01/18/17 History Gabapentin [Neurontin] 800 mg PO BID 01/20/17 02/03/17 01/19/17 History Hydroxyzine HCl [hydrOXYzine] 50 mg PO Q8H PRN 01/20/17 02/03/17 01/15/17 History Melatonin 10 mg PO QHS 01/20/17 02/03/17 01/18/17 History Meloxicam [Mobic] 15 mg PO DAILY 01/20/17 02/03/17 01/19/17 History Multivit-Min/Iron Fum/Folic AC 1 each PO DAILY 01/20/17 02/03/17 01/18/17 History [Bwcze-Ibcqynl-Notsddza Tablet] Prazosin [Minipress] 2 mg PO QHS 01/20/17 02/03/17 01/18/17 History PARoxetine [Paxil] 30 mg PO DAILY tablet 01/22/17 02/03/17 Unknown Rx Warfarin [Coumadin] 10 mg PO DAILY@1700 30 Days tablet 01/22/17 02/03/17 Unknown Rx Active Meds: Active Medications Acetaminophen (Tylenol) 650 mg PO Q4H PRN PRN Reason: Pain MILD(1-3)/Fever >100.5/LEWIS Bisacodyl (Dulcolax) 10 mg PA QDAY PRN PRN Reason: Constipation unrelieved by MOM Diazepam (Valium) 2.5 mg PO Q4H PRN PRN Reason: Anxiety Enoxaparin Sodium (Lovenox) 80 mg SUB-Q Q12HR [facility] Famotidine (Pepcid) 20 mg PO QHS [facility] Gabapentin (Neurontin) 800 mg PO BID [facility] Hydroxyzine HCl (Atarax) 50 mg PO Q8H PRN PRN Reason: Anxiety Magnesium Hydroxide (Milk Of Magnesia) 30 ml PO Q4H PRN PRN Reason: Constipation Meloxicam (Mobic) 15 mg PO DAILY [facility] Miscellaneous Medication (Melatonin [Melatonin]) 10 mg PO QHS [facility] Morphine Sulfate (Morphine) 2 mg IV Q4H PRN PRN Reason: Pain, Moderate (4-6) Multivitamins/Minerals (Theragran-M Tab) 1 each PO QDAY [facility] Olanzapine (Zyprexa) 5 mg PO Q8H PRN PRN Reason: Agitation Olanzapine (Zyprexa) 5 mg PO Q8HR [facility] Ondansetron HCl (Zofran) 4 mg IV Q8H PRN PRN Reason: N/V unrelieved by Reglan Paroxetine HCl (Paxil) 30 mg PO DAILY [facility] Prazosin HCl (Minipress) 2 mg PO QHS [facility] Tramadol HCl (Ultram) 50 mg PO TID [facility] Warfarin Sodium (Coumadin) 12 mg PO DAILY@1700 [facility] PRN Reason: Protocol Warfarin Sodium (Coumadin Pharmacy To Dose) 1 each PO PKCONSULT [facility] PRN Reason: Protocol Review of Systems All systems: negative (14 point review of systems is otherwise negative except as stated in HPI) Exam - Constitutional Vitals: Temp Pulse Resp BP Pulse Ox 9.4 F L 82 15 103/64 94 12/26/17 19:35 02/02/17 23:30 02/02/17 23:30 02/02/17 23:30 02/02/17 23:30 General appearance: Present: no acute distress, well-nourished - EENT Eyes: Present: PERRL ENT: hearing intact, clear oral mucosa - Neck Neck: Present: supple, normal ROM - Respiratory Respiratory effort: normal Respiratory: bilateral: CTA - Cardiovascular Heart Sounds: Present: S1 & S2. Absent: rub, click - Extremities Extremities: pulses symmetrical Extremity abnormal: edema (Bilat lower extremities with pitting edema, echymosis on inner leg and inner thigh), other (R BKA) Peripheral Pulses: within normal limits - Abdominal General gastrointestinal: Present: soft, non-tender, non-distended, normal bowel sounds Female genitourinary: Present: normal - Integumentary Integumentary: Present: clear, warm, dry - Musculoskeletal Musculoskeletal: gait normal, strength equal bilaterally - Psychiatric Psychiatric: no appropriate mood/affect, agitated - Neurologic Neurologic: CNII-XII intact, moves all extremities Results - Labs CBC & Chem 7: 02/02/17 20:58 02/02/17 20:58 Labs: Laboratory Last Values WBC 6.6 K/mm3 (4.5-11.0) 02/02/17 20:58 RBC 3.32 M/mm3 (3.65-5.03) L 02/02/17 20:58 Hgb 10.1 gm/dl (10.1-14.3) 02/02/17 20:58 Hct 29.9 % (30.3-42.9) L 02/02/17 20:58 MCV 90 fl (79-97) 02/02/17 20:58 MCH 30 pg (28-32) 02/02/17 20:58 MCHC 34 % (30-34) 02/02/17 20:58 RDW 13.4 % (13.2-15.2) 02/02/17 20:58 Plt Count 277 K/mm3 (140-440) 02/02/17 20:58 Lymph % (Auto) 43.4 % (13.4-35.0) H 02/02/17 20:58 [place] % (Auto) 7.3 % (0.0-7.3) 02/02/17 20:58 Eos % (Auto) 3.4 % (0.0-4.3) 02/02/17 20:58 Baso % (Auto) 1.0 % (0.0-1.8) 02/02/17 20:58 Lymph # 2.8 K/mm3 (1.2-5.4) 02/02/17 20:58 [place] # 0.5 K/mm3 (0.0-0.8) 02/02/17 20:58 Eos # 0.2 K/mm3 (0.0-0.4) 02/02/17 20:58 Baso # 0.1 K/mm3 (0.0-0.1) 02/02/17 20:58 Seg Neutrophils % 44.9 % (40.0-70.0) 02/02/17 20:58 Seg Neutrophils # 2.9 K/mm3 (1.8-7.7) 02/02/17 20:58 PT 22.1 Sec. (12.2-14.9) H 02/02/17 20:58 INR 1.82 (0.87-1.13) H 02/02/17 20:58 APTT 46.8 Sec. (24.2-36.6) H 02/02/17 20:58 D-Dimer 190.63 ng/mlDDU (0-234) 02/02/17 20:58 Sodium 140 mmol/L (137-145) 02/02/17 20:58 Potassium 4.2 mmol/L (3.6-5.0) 02/02/17 20:58 Chloride 101.0 mmol/L (98-107) 02/02/17 20:58 Carbon Dioxide 27 mmol/L (22-30) 02/02/17 20:58 Anion Gap 16 mmol/L 02/02/17 20:58 BUN 14 mg/dL (7-17) 02/02/17 20:58 Creatinine 0.5 mg/dL (0.7-1.2) L 02/02/17 20:58 Estimated GFR > 60 ml/min 02/02/17 20:58 BUN/Creatinine Ratio 28 % 02/02/17 20:58 Glucose 92 mg/dL (65-100) 02/02/17 20:58 Calcium 8.8 mg/dL (8.4-10.2) 02/02/17 20:58 Total Bilirubin < 0.20 mg/dL (0.1-1.2) 02/02/17 20:58 AST 20 units/L (5-40) 02/02/17 20:58 ALT 21 units/L (7-56) 02/02/17 20:58 Alkaline Phosphatase 105 units/L (35-129) 02/02/17 20:58 NT-Pro-B Natriuret Pep 107.0 pg/mL (0-450) 02/02/17 20:58 Total Protein 6.0 g/dL (6.3-8.2) L 02/02/17 20:58 Albumin 3.5 g/dL (3.9-5) L 02/02/17 20:58 Albumin/Globulin Ratio 1.4 % 02/02/17 20:58 Assessment and Plan Assessment and plan: 41-year-old woman with recurrent DVT who presents with new left-sided lower extremity swelling and pain Suspected DVT of left lower extremity INR subtherapeutic, will put on Lovenox and increase Coumadin dose Doppler for ultrasound has been ordered -arterial U/S also ordered Subtherapeutic INR Bridging with Lovenox, increase Coumadin dose hyper coagulable state Lifelong anticoagulation Hematology consult Major depression Mental health consult bilat LE pitting edema -obtain echo, -start lasix,
[2017-02-03] MEDS: VALIUM PO PRN ×5 (03:24→22:21)
[2017-02-03] MEDS: LASIX IV SCH ×2 (07:00)
[2017-02-03] MEDS ORDERED: ULTRAM PO SCH (08:00)
[2017-02-03] MEDS: DILAUDID IV PRN ×2 (08:07→12:18)
[2017-02-03] MEDS: LOVENOX SUB-Q SCH ×2 (10:00→22:23)
[2017-02-03] MEDS ORDERED: MOBIC PO SCH (10:00)
[2017-02-03] MEDS: PAXIL PO SCH (10:00)
[2017-02-03] MEDS ORDERED: LOVENOX SUB-Q SCH (10:00)
[2017-02-03] MEDS ORDERED: NON-FORMULARY (Multivit-Min/Iron Fum/Folic Ac [Multi-Vitamin-Minerals Tablet] 1 EACH) PO SCH (10:00)
[2017-02-03] MEDS: NEURONTIN PO SCH ×2 (10:14→22:22)
[2017-02-03] MEDS: THERAGRAN-M Tab PO SCH (10:14)
--- NOTE | 2017-02-03 13:24 | Progress Note ---
Assessment and Plan Assessment and plan: Patient is a 41-year-old woman with a history of asthma, multiple sclerosis, PTSD, major depression disorder, multiple suicide attempts ("I am a cutter"), tob/etoh/polysubstance abuse and multiple VTEs who presents with left leg swollen. She is from [place] under 1013. Venous doppler negative of acute DVT. Here for a/c Suspected DVT of left lower extremity INR subtherapeutic, will put on Lovenox and increase Coumadin dose Doppler for ultrasound has been ordered -arterial U/S also ordered Subtherapeutic INR Bridging with Lovenox, increase Coumadin dose hyper coagulable state Lifelong anticoagulation Hematology consult Major depression Mental health consult bilat LE pitting edema -obtain echo, -start lasix, Patient wants her morphine 4mg iv q4hrs, trazodone qhs, melantonin. History Interval history: Patient was seen and examined. Follow-up on current diagnosis. Overnight uneventful. Patient denies any chest pain, shortness breath, nausea/vomiting or severe headaches. Imaging, nursing note, chart, labs and old chart reviewed. Discussed with patient. Hospitalist Physical - Physical exam Narrative exam: GEN: WDWN, NAD, AWAKE, ALERT, ORIENTATED 3 HEENT: NCAT, EOMI, PERRL, OP Clear NECK: supple, no adenopathy, no thyromegaly, no JVD CVS/HEART: RRR, NORMAL S1S2, NO JVD, pulses present bilaterally CHEST/LUNGS: CTA B, Symmetrical chest expansion, good air entry bilaterally GI/Abdomen: soft, NTND, good bowel sounds, no guarding or rebound /Bladder: no suprapubic tenderness, no CVA or paraspinal tenderness EXT/Skin: no c/c/e, obvious rash bilateral purpura rash on legs/stump, right leg amputated, stump with dependant edema MSK: FROM x 4 Neuro: CN 2-12 grossly intact, no new focal deficits Psych: pressure speech - Constitutional Vitals: Temp Pulse Resp BP Pulse Ox 98.3 F 81 18 117/63 97 02/03/17 08:13 02/03/17 08:13 02/03/17 08:13 02/03/17 08:13 02/03/17 08:13 General appearance: Present: no acute distress, well-nourished Results - Labs CBC & Chem 7: 02/02/17 20:58 02/02/17 20:58 Labs: Laboratory Last Values WBC 6.6 K/mm3 (4.5-11.0) 02/02/17 20:58 RBC 3.32 M/mm3 (3.65-5.03) L 02/02/17 20:58 Hgb 10.1 gm/dl (10.1-14.3) 02/02/17 20:58 Hct 29.9 % (30.3-42.9) L 02/02/17 20:58 MCV 90 fl (79-97) 02/02/17 20:58 MCH 30 pg (28-32) 02/02/17 20:58 MCHC 34 % (30-34) 02/02/17 20:58 RDW 13.4 % (13.2-15.2) 02/02/17 20:58 Plt Count 277 K/mm3 (140-440) 02/02/17 20:58 Lymph % (Auto) 43.4 % (13.4-35.0) H 02/02/17 20:58 [place] % (Auto) 7.3 % (0.0-7.3) 02/02/17 20:58 Eos % (Auto) 3.4 % (0.0-4.3) 02/02/17 20:58 Baso % (Auto) 1.0 % (0.0-1.8) 02/02/17 20:58 Lymph # 2.8 K/mm3 (1.2-5.4) 02/02/17 20:58 [place] # 0.5 K/mm3 (0.0-0.8) 02/02/17 20:58 Eos # 0.2 K/mm3 (0.0-0.4) 02/02/17 20:58 Baso # 0.1 K/mm3 (0.0-0.1) 02/02/17 20:58 Seg Neutrophils % 44.9 % (40.0-70.0) 02/02/17 20:58 Seg Neutrophils # 2.9 K/mm3 (1.8-7.7) 02/02/17 20:58 PT 22.1 Sec. (12.2-14.9) H 02/02/17 20:58 INR 1.82 (0.87-1.13) H 02/02/17 20:58 APTT 46.8 Sec. (24.2-36.6) H 02/02/17 20:58 D-Dimer 190.63 ng/mlDDU (0-234) 02/02/17 20:58 Sodium 140 mmol/L (137-145) 02/02/17 20:58 Potassium 4.2 mmol/L (3.6-5.0) 02/02/17 20:58 Chloride 101.0 mmol/L (98-107) 02/02/17 20:58 Carbon Dioxide 27 mmol/L (22-30) 02/02/17 20:58 Anion Gap 16 mmol/L 02/02/17 20:58 BUN 14 mg/dL (7-17) 02/02/17 20:58 Creatinine 0.5 mg/dL (0.7-1.2) L 02/02/17 20:58 Estimated GFR > 60 ml/min 02/02/17 20:58 BUN/Creatinine Ratio 28 % 02/02/17 20:58 Glucose 92 mg/dL (65-100) 02/02/17 20:58 Calcium 8.8 mg/dL (8.4-10.2) 02/02/17 20:58 Total Bilirubin < 0.20 mg/dL (0.1-1.2) 02/02/17 20:58 AST 20 units/L (5-40) 02/02/17 20:58 ALT 21 units/L (7-56) 02/02/17 20:58 Alkaline Phosphatase 105 units/L (35-129) 02/02/17 20:58 NT-Pro-B Natriuret Pep 107.0 pg/mL (0-450) 02/02/17 20:58 Total Protein 6.0 g/dL (6.3-8.2) L 02/02/17 20:58 Albumin 3.5 g/dL (3.9-5) L 02/02/17 20:58 Albumin/Globulin Ratio 1.4 % 02/02/17 20:58
--- NOTE | 2017-02-03 15:20 | Hem/Onc Consultation ---
History of Present Illness - Reason for Consult Consult date: 02/03/17 - History of Present Illness Patient states she had PE 11 years ago and then at least 11 DVt's in right and left lower extremity. She has been on indefinite anticoagulation and is a resident of [place]. Admitted with electrolyte abnormalities. Past History Past Medical History: DVT, other (major depression, suicide attempts, asthma) Past Surgical History: Other (right BKA) Social history: smoking, alcohol abuse, other (cocaine and marijuana abuse) Family history: hypertension Medications and Allergies Allergies Allergy/AdvReac Type Severity Reaction Status Date / Time haloperidol [From Haldol] Allergy Anaphylaxis Verified 01/09/17 17:42 ziprasidone [From Geodon] Allergy Anaphylaxis Verified 01/20/17 10:47 Home Medications Medication Instructions Recorded Confirmed Last Taken Type Diazepam 2.5 mg PO Q4H PRN 01/20/17 02/03/17 01/19/17 History Famotidine [Pepcid] 20 mg PO QHS 01/20/17 02/03/17 01/18/17 History Gabapentin [Neurontin] 800 mg PO BID 01/20/17 02/03/17 01/19/17 History Hydroxyzine HCl [hydrOXYzine] 50 mg PO Q8H PRN 01/20/17 02/03/17 01/15/17 History Melatonin 10 mg PO QHS 01/20/17 02/03/17 01/18/17 History Meloxicam [Mobic] 15 mg PO DAILY 01/20/17 02/03/17 01/19/17 History Multivit-Min/Iron Fum/Folic AC 1 each PO DAILY 01/20/17 02/03/17 01/18/17 History [Sxpop-Muyvheq-Rlnhekcv Tablet] Prazosin [Minipress] 2 mg PO QHS 01/20/17 02/03/17 01/18/17 History PARoxetine [Paxil] 30 mg PO DAILY tablet 01/22/17 02/03/17 Unknown Rx Warfarin [Coumadin] 10 mg PO DAILY@1700 30 Days tablet 01/22/17 02/03/17 Unknown Rx Active Meds: Active Medications Acetaminophen (Tylenol) 650 mg PO Q4H PRN PRN Reason: Pain MILD(1-3)/Fever >100.5/[facility] Bisacodyl (Dulcolax) 10 mg ID QDAY PRN PRN Reason: Constipation unrelieved by MOM Diazepam (Valium) 2.5 mg PO Q4H PRN PRN Reason: Anxiety Last Admin: 02/03/17 12:17 Dose: 2.5 mg Enoxaparin Sodium (Lovenox) 90 mg SUB-Q Q12HR [facility] Last Admin: 02/03/17 10:00 Dose: 90 mg Famotidine (Pepcid) 20 mg PO QHS [facility] Furosemide (Lasix) 40 mg IV DAILY@0600 [facility] Gabapentin (Neurontin) 800 mg PO BID [facility] Last Admin: 02/03/17 10:14 Dose: 800 mg Hydroxyzine HCl (Atarax) 50 mg PO Q8H PRN PRN Reason: Anxiety Magnesium Hydroxide (Milk Of Magnesia) 30 ml PO Q4H PRN PRN Reason: Constipation Morphine Sulfate (Morphine) 4 mg IV Q4H PRN PRN Reason: Pain , Severe (7-10) Multivitamins/Minerals (Theragran-M Tab) 1 each PO QDAY [facility] Last Admin: 02/03/17 10:14 Dose: 1 each Paroxetine HCl (Paxil) 30 mg PO DAILY [facility] Prazosin HCl (Minipress) 2 mg PO QHS [facility] Tramadol HCl (Ultram) 100 mg PO Q6H PRN PRN Reason: Pain, Moderate (4-6) Trazodone HCl (Desyrel) 150 mg PO QHS [facility] Warfarin Sodium (Coumadin Pharmacy To Dose) 1 each PO PKCONSULT [facility] PRN Reason: Protocol Warfarin Sodium (Coumadin) 10 mg PO DAILY@1700 [facility] PRN Reason: Protocol Review of Systems All systems: negative (chronic lower extremity edema.) Exam - Constitutional Vitals: Last Vital Signs Temp 98.3 F 02/03/17 08:13 Pulse 81 02/03/17 08:13 Resp 18 02/03/17 08:13 BP 117/63 02/03/17 08:13 Pulse Ox 97 02/03/17 08:13 - EENT Eyes: PERRL ENT: hearing intact - Neck Neck: supple - Respiratory Respiratory: bilateral: CTA - Cardiovascular Rhythm: regular Extremity abnormal: other (right amputation) Results - Labs lab Results: Laboratory Results - last 24 hr 02/02/17 02/02/17 02/02/17 20:58 20:58 20:58 WBC 6.6 RBC 3.32 L Hgb 10.1 Hct 29.9 L MCV 90 MCH 30 MCHC 34 RDW 13.4 Plt Count 277 Lymph % (Auto) 43.4 H [place] % (Auto) 7.3 Eos % (Auto) 3.4 Baso % (Auto) 1.0 Lymph # 2.8 [place] # 0.5 Eos # 0.2 Baso # 0.1 Seg Neutrophils % 44.9 Seg Neutrophils # 2.9 PT 22.1 H INR 1.82 H APTT 46.8 H D-Dimer 190.63 Sodium 140 Potassium 4.2 Chloride 101.0 Carbon Dioxide 27 Anion Gap 16 BUN 14 Creatinine 0.5 L Estimated GFR > 60 BUN/Creatinine Ratio 28 Glucose 92 Calcium 8.8 Total Bilirubin < 0.20 AST 20 ALT 21 Alkaline Phosphatase 105 NT-Pro-B Natriuret Pep 107.0 Total Protein 6.0 L Albumin 3.5 L Albumin/Globulin Ratio 1.4 Assessment and Plan - Patient Problems (1) DVT (deep venous thrombosis) Current Visit: No Status: Acute Qualifiers: DVT location: lower extremity Laterality: right Plan to address problem: Agree with indefinite anticoagulation with coumadin. Recommend vascular surgery consultation. She is not interested in the NOACS or heparin. Her INR is checked at [place].
[2017-02-03] MEDS: COUMADIN PO SCH (16:46)
[2017-02-03] MEDS: MORPHINE IV PRN ×2 (16:55→20:00)
[2017-02-03] MEDS ORDERED: COUMADIN PO SCH (17:00)
[2017-02-03] MEDS ORDERED: NON-FORMULARY (Melatonin [Melatonin] 10 MG) PO SCH (22:00)
[2017-02-03] MEDS: DESYREL PO SCH (22:21)
[2017-02-03] MEDS: PEPCID PO SCH (22:21)
[2017-02-03] MEDS: MINIPRESS PO SCH (22:22)
[2017-02-04] MEDS: MORPHINE IV PRN ×6 (00:09→21:28)
[2017-02-04] MEDS: LASIX IV SCH (05:33)
[2017-02-04 06:44] LABS: Hematocrit 33.3 % (30.3-42.9); Hemoglobin 10.6 gm/dl (10.1-14.3); Mean Corpuscular HGB Conc 32 % (30-34); Mean Corpuscular Hemoglobin 29 pg (28-32); Mean Corpuscular Volume 91 fl (79-97); Platelet Count 307 K/mm3 (140-440); Red Blood Count 3.67 M/mm3 (3.65-5.03)
[2017-02-04 06:53] LABS: INR 1.5 (0.87-1.13)
[2017-02-04 06:56] LABS: BUN/Creatinine Ratio 30; Blood Urea Nitrogen 15 mg/dL (7-17); Calcium 8.9 mg/dL (8.4-10.2); Hemolysis Index 3
[2017-02-04] MEDS: PAXIL PO SCH (10:47)
[2017-02-04] MEDS: THERAGRAN-M Tab PO SCH (10:47)
[2017-02-04] MEDS: LOVENOX SUB-Q SCH ×2 (10:48→23:27)
[2017-02-04] MEDS: NEURONTIN PO SCH ×2 (10:48→23:27)
--- NOTE | 2017-02-04 13:29 | Hem/Onc Progress Note ---
Assessment and Plan - Patient Problems (1) DVT (deep venous thrombosis) Current Visit: No Status: Acute Qualifiers: DVT location: lower extremity Laterality: right Plan to address problem: D/w vascular surgeru who will see patient. Plan is indefinite anticoagulation. She agrees. Outpatient follow up stressed. She agrees. Subjective Date of service: 02/04/17 Interval history: No new complains. Objective - Constitutional Vitals: Last Vital Signs Temp 97.9 F 02/04/17 08:35 Pulse 69 02/04/17 08:35 Resp 20 02/04/17 08:35 BP 104/60 02/04/17 08:35 Pulse Ox 100 02/04/17 08:35 - EENT Lymph node exam: negative cervical - Neck Neck: supple - Respiratory Respiratory effort: Positive: normal - Labs Lab Results: Laboratory Results - last 24 hr 02/04/17 02/04/17 02/04/17 06:16 06:16 06:16 WBC 5.1 RBC 3.67 Hgb 10.6 Hct 33.3 MCV 91 MCH 29 MCHC 32 RDW 14.0 Plt Count 307 PT 18.9 H INR 1.50 H Sodium 139 Potassium 4.3 Chloride 100.0 Carbon Dioxide 28 Anion Gap 15 BUN 15 Creatinine 0.5 L Estimated GFR > 60 BUN/Creatinine Ratio 30 Glucose 72 Calcium 8.9
--- NOTE | 2017-02-04 14:25 | Progress Note ---
Assessment and Plan Assessment and plan: Patient is a 41-year-old woman with a history of asthma, multiple sclerosis, PTSD, major depression disorder, multiple suicide attempts ("I am a cutter"), tob/etoh/polysubstance abuse and multiple VTEs who presents with left leg swollen. She is from [place] under 1013. Venous doppler negative of acute DVT. Here for a/c Suspected DVT of left lower extremity INR subtherapeutic, will put on Lovenox and increase Coumadin dose Doppler for ultrasound has been ordered -arterial U/S also ordered Subtherapeutic INR Bridging with Lovenox, increase Coumadin dose hyper coagulable state Lifelong anticoagulation Hematology consult Major depression Mental health consult bilat LE pitting edema -obtain echo, -start lasix, Patient wants her morphine 4mg iv q4hrs, trazodone qhs, melantonin. 02/04/17: INR went down, await INR to start increasing then d/c back to [place] History Interval history: Patient was seen and examined. Follow-up on current diagnosis. Overnight uneventful. Patient denies any chest pain, shortness breath, nausea/vomiting or severe headaches. Imaging, nursing note, chart, labs and old chart reviewed. Discussed with patient. Hospitalist Physical - Physical exam Narrative exam: GEN: WDWN, NAD, AWAKE, ALERT, ORIENTATED 3 HEENT: NCAT, EOMI, PERRL, OP Clear NECK: supple, no adenopathy, no thyromegaly, no JVD CVS/HEART: RRR, NORMAL S1S2, NO JVD, pulses present bilaterally CHEST/LUNGS: CTA B, Symmetrical chest expansion, good air entry bilaterally GI/Abdomen: soft, NTND, good bowel sounds, no guarding or rebound /Bladder: no suprapubic tenderness, no CVA or paraspinal tenderness EXT/Skin: no c/c/e, obvious rash bilateral purpura rash on legs/stump, right leg amputated, stump with dependant edema MSK: FROM x 4 Neuro: CN 2-12 grossly intact, no new focal deficits Psych: pressure speech - Constitutional Vitals: Temp Pulse Resp BP Pulse Ox 97.9 F 69 20 104/60 100 02/04/17 08:35 02/04/17 08:35 02/04/17 08:35 02/04/17 08:35 02/04/17 08:35 General appearance: Present: no acute distress, well-nourished Results - Labs CBC & Chem 7: 02/04/17 06:16 02/04/17 06:16 Labs: Laboratory Last Values WBC 5.1 K/mm3 (4.5-11.0) 02/04/17 06:16 RBC 3.67 M/mm3 (3.65-5.03) 02/04/17 06:16 Hgb 10.6 gm/dl (10.1-14.3) 02/04/17 06:16 Hct 33.3 % (30.3-42.9) 02/04/17 06:16 MCV 91 fl (79-97) 02/04/17 06:16 MCH 29 pg (28-32) 02/04/17 06:16 MCHC 32 % (30-34) 02/04/17 06:16 RDW 14.0 % (13.2-15.2) 02/04/17 06:16 Plt Count 307 K/mm3 (140-440) 02/04/17 06:16 Lymph % (Auto) 43.4 % (13.4-35.0) H 02/02/17 20:58 Izard % (Auto) 7.3 % (0.0-7.3) 02/02/17 20:58 Eos % (Auto) 3.4 % (0.0-4.3) 02/02/17 20:58 Baso % (Auto) 1.0 % (0.0-1.8) 02/02/17 20:58 Lymph # 2.8 K/mm3 (1.2-5.4) 02/02/17 20:58 Izard # 0.5 K/mm3 (0.0-0.8) 02/02/17 20:58 Eos # 0.2 K/mm3 (0.0-0.4) 02/02/17 20:58 Baso # 0.1 K/mm3 (0.0-0.1) 02/02/17 20:58 Seg Neutrophils % 44.9 % (40.0-70.0) 02/02/17 20:58 Seg Neutrophils # 2.9 K/mm3 (1.8-7.7) 02/02/17 20:58 PT 18.9 Sec. (12.2-14.9) H 02/04/17 06:16 INR 1.50 (0.87-1.13) H 02/04/17 06:16 APTT 46.8 Sec. (24.2-36.6) H 02/02/17 20:58 D-Dimer 190.63 ng/mlDDU (0-234) 02/02/17 20:58 Sodium 139 mmol/L (137-145) 02/04/17 06:16 Potassium 4.3 mmol/L (3.6-5.0) 02/04/17 06:16 Chloride 100.0 mmol/L (98-107) 02/04/17 06:16 Carbon Dioxide 28 mmol/L (22-30) 02/04/17 06:16 Anion Gap 15 mmol/L 02/04/17 06:16 BUN 15 mg/dL (7-17) 02/04/17 06:16 Creatinine 0.5 mg/dL (0.7-1.2) L 02/04/17 06:16 Estimated GFR > 60 ml/min 02/04/17 06:16 BUN/Creatinine Ratio 30 % 02/04/17 06:16 Glucose 72 mg/dL (65-100) 02/04/17 06:16 Calcium 8.9 mg/dL (8.4-10.2) 02/04/17 06:16 Total Bilirubin < 0.20 mg/dL (0.1-1.2) 02/02/17 20:58 AST 20 units/L (5-40) 02/02/17 20:58 ALT 21 units/L (7-56) 02/02/17 20:58 Alkaline Phosphatase 105 units/L (35-129) 02/02/17 20:58 NT-Pro-B Natriuret Pep 107.0 pg/mL (0-450) 02/02/17 20:58 Total Protein 6.0 g/dL (6.3-8.2) L 02/02/17 20:58 Albumin 3.5 g/dL (3.9-5) L 02/02/17 20:58 Albumin/Globulin Ratio 1.4 % 02/02/17 20:58
--- NOTE | 2017-02-04 16:49 | Consultation ---
History of Present Illness - Reason for Consult Consult date: 02/04/17 Left Lower Extremity Swelling - History of Present Illness This patient is a 41-year-old -[place] female that was admitted via the emergency room on 02/03/2017 due to progressive left lower extremity swelling and discomfort. Patient has a history of multiple DVTs in both lower extremities for which she is on lifelong Coumadin. The most recent venous duplex was negative for DVTs of the left lower extremity. She's had multiple recent emergency room visits for similar complaints. A vascular surgery consult has been requested to further evaluate. She complains of bruising in the medial left thigh and calf. She states that the swelling has improved following admission, and the use of intravenous diuretics. Past History Past Medical History: DVT, pulmonary embolism, other (major depression, suicide attempts, asthma) Past Surgical History: Other (right BKA) Social history: smoking, alcohol abuse, other (cocaine and marijuana abuse, patient is essentially homeless by report) Family history: hypertension Medications and Allergies Allergies Allergy/AdvReac Type Severity Reaction Status Date / Time haloperidol [From Haldol] Allergy Anaphylaxis Verified 01/09/17 17:42 ziprasidone [From Geodon] Allergy Anaphylaxis Verified 01/20/17 10:47 Home Medications Medication Instructions Recorded Confirmed Last Taken Type Diazepam 2.5 mg PO Q4H PRN 01/20/17 02/03/17 01/19/17 History Famotidine [Pepcid] 20 mg PO QHS 01/20/17 02/03/17 01/18/17 History Gabapentin [Neurontin] 800 mg PO BID 01/20/17 02/03/17 01/19/17 History Hydroxyzine HCl [hydrOXYzine] 50 mg PO Q8H PRN 01/20/17 02/03/17 01/15/17 History Melatonin 10 mg PO QHS 01/20/17 02/03/17 01/18/17 History Meloxicam [Mobic] 15 mg PO DAILY 01/20/17 02/03/17 01/19/17 History Multivit-Min/Iron Fum/Folic AC 1 each PO DAILY 01/20/17 02/03/17 01/18/17 History [Avfsh-Sdpyllf-Kyzerhsm Tablet] Prazosin [Minipress] 2 mg PO QHS 01/20/17 02/03/17 01/18/17 History PARoxetine [Paxil] 30 mg PO DAILY tablet 01/22/17 02/03/17 Unknown Rx Warfarin [Coumadin] 10 mg PO DAILY@1700 30 Days tablet 01/22/17 02/03/17 Unknown Rx Active Meds: Active Medications Acetaminophen (Tylenol) 650 mg PO Q4H PRN PRN Reason: Pain MILD(1-3)/Fever >100.5/LEWIS Bisacodyl (Dulcolax) 10 mg ID QDAY PRN PRN Reason: Constipation unrelieved by MOM Diazepam (Valium) 2.5 mg PO Q4H PRN PRN Reason: Anxiety Last Admin: 02/03/17 22:21 Dose: 2.5 mg Enoxaparin Sodium (Lovenox) 90 mg SUB-Q Q12HR [facility] Last Admin: 02/04/17 10:48 Dose: 90 mg Famotidine (Pepcid) 20 mg PO QHS [facility] Last Admin: 02/03/17 22:21 Dose: 20 mg Furosemide (Lasix) 40 mg IV DAILY@0600 [facility] Last Admin: 02/04/17 05:33 Dose: 40 mg Gabapentin (Neurontin) 800 mg PO BID [facility] Last Admin: 02/04/17 10:48 Dose: 800 mg Hydroxyzine HCl (Atarax) 50 mg PO Q8H PRN PRN Reason: Anxiety Magnesium Hydroxide (Milk Of Magnesia) 30 ml PO Q4H PRN PRN Reason: Constipation Morphine Sulfate (Morphine) 4 mg IV Q4H PRN PRN Reason: Pain , Severe (7-10) Last Admin: 02/04/17 13:46 Dose: 4 mg Multivitamins/Minerals (Theragran-M Tab) 1 each PO QDAY [facility] Last Admin: 02/04/17 10:47 Dose: 1 each Paroxetine HCl (Paxil) 30 mg PO DAILY [facility] Last Admin: 02/04/17 10:47 Dose: 30 mg Prazosin HCl (Minipress) 2 mg PO QHS [facility] Last Admin: 02/03/17 22:22 Dose: 2 mg Tramadol HCl (Ultram) 100 mg PO Q6H PRN PRN Reason: Pain, Moderate (4-6) Trazodone HCl (Desyrel) 150 mg PO QHS [facility] Last Admin: 02/03/17 22:21 Dose: 150 mg Warfarin Sodium (Coumadin Pharmacy To Dose) 1 each PO PKCONSULT [facility] PRN Reason: Protocol Warfarin Sodium (Coumadin) 10 mg PO DAILY@1700 [facility] PRN Reason: Protocol Last Admin: 02/03/17 16:46 Dose: 10 mg Review of Systems All systems: negative Exam - Constitutional Vitals: Temp Pulse Resp BP Pulse Ox 97.9 F 69 20 104/60 100 02/04/17 08:35 02/04/17 08:35 02/04/17 08:35 02/04/17 08:35 02/04/17 08:35 General appearance: Present: no acute distress - EENT Eyes: Present: EOM intact ENT: hearing intact - Neck Neck: Present: supple - Respiratory Respiratory effort: normal - Cardiovascular Rhythm: regular - Extremities Extremities: pulses intact (left dorsalis pedis), normal temperature, abnormal ( right below the knee amputation) Extremity abnormal: edema (swelling of the right BKA especially in the thigh, left lower extremity swelling), other (she has bruising along the medial thigh extending down to the medial calf (see pictures below)) - Psychiatric Psychiatric: cooperative - Neurologic Neurologic: no focal deficits - Additional findings Additional findings: Results - Labs CBC & Chem 7: 02/04/17 06:16 02/04/17 06:16 Labs: Abnormal lab results 02/04/17 02/04/17 Range/Units 06:16 06:16 PT 18.9 H (12.2-14.9) Sec. INR 1.50 H (0.87-1.13) Creatinine 0.5 L (0.7-1.2) mg/dL Assessment and Plan This patient has a history of bilateral lower extremity DVTs. The Most recent duplex was negative for acute findings. The patient states she had an IVC filter placed approximately 10 years ago ( [place] filter per patient report). She reports to being on Coumadin as an outpatient, but presented with a subtherapeutic INR. She states that she has fibroids and that she bleeds heavily with her menstrual period. She has bruising to the medial thigh of the left lower extremity. This could be as consequence to oral anticoagulation, though will likely be self-limited. This certainly could contribute to her leg swelling. Recommend lower extremity elevation (proper technique discussed with the patient ), warm compresses to bruised area, and compression hose as tolerated. We'll check a KUB to evaluate the previous placed IVC filter's current positioning. 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
[2017-02-04] MEDS: COUMADIN PO SCH (17:10)
[2017-02-04] MEDS: VALIUM PO PRN (17:12)
--- NOTE | 2017-02-04 17:26 | Vascular Lab Report ---
LOWER EXTREMITY VENOUS DUPLEX: REASON FOR EXAM: Pain and swelling of the lower extremities. COMMENTS ON THE RIGHT: All veins visualized are freely compressible without evidence of internal echogenicity. Flow is spontaneous and phasic throughout. Lower were only examined from the knee proximally. COMMENTS ON THE LEFT: All veins visualized are freely compressible without evidence of internal echogenicity. Flow is spontaneous and phasic throughout. IMPRESSION: No evidence of acute or chronic deep venous thrombosis in either lower extremity. The study was limited to the above-knee veins of the right lower extremity.
--- NOTE | 2017-02-04 17:29 | Vascular Lab Report ---
LOWER EXTREMITY ARTERIAL DUPLEX: REASON FOR EXAM: Peripheral arterial disease. COMMENTS ON THE RIGHT: Triphasic waveforms are seen proximally. Biphasic waveforms are seen distally. No significant velocity gradients are identified. Mild plaque is seen throughout. Examination was only done as far distal as the knee. COMMENTS ON THE LEFT: Triphasic waveforms are seen proximally. Triphasic waveforms are seen distally. No significant velocity gradients are identified. No significant plaque is identified. Findings are consistent with normal perfusion. Findings are consistent with the ability to heal distal wounds. IMPRESSION: RIGHT: Mildly abnormal flow in the proximal arteries. LEFT:Essentially normal arterial flow.
--- NOTE | 2017-02-04 17:37 | XRay Report ---
FINAL REPORT EXAM: XR ABDOMEN 1V AP HISTORY: IVC filter positioning TECHNIQUE: Abdomen supine PRIORS: None. FINDINGS: Catheter overlies the left upper quadrant likely feeding tube. Demonstrated is an IVC filter to the right of midline at the L2-L3 level in satisfactory position. Bowel gas pattern is unremarkable. Moderate amount of stool and gas within the colon. IMPRESSION: IVC filter at the L2-L3 level in satisfactory position
[2017-02-04] MEDS: DESYREL PO SCH (23:26)
[2017-02-04] MEDS: MINIPRESS PO SCH (23:27)
[2017-02-04] MEDS: PEPCID PO SCH (23:27)
[2017-02-05] MEDS: MORPHINE IV PRN ×6 (01:39→22:35)
[2017-02-05] MEDS: LASIX IV SCH ×2 (05:29→15:07)
[2017-02-05 07:32] LABS: INR 1.42 (0.87-1.13)
[2017-02-05] MEDS: VALIUM PO PRN ×3 (08:38→23:01)
--- NOTE | 2017-02-05 10:58 | Progress Note ---
Assessment and Plan Assessment and plan: Patient is a 41-year-old woman with a history of asthma, multiple sclerosis, PTSD, major depression disorder, multiple suicide attempts ("I am a cutter"), tob/etoh/polysubstance abuse and multiple VTEs who presents with left leg swollen. She is from [place] under 1013. Venous doppler negative of acute DVT. Here for a/c Suspected DVT of left lower extremity INR subtherapeutic, will put on Lovenox and increase Coumadin dose Doppler for ultrasound has been ordered -arterial U/S also ordered Subtherapeutic INR Bridging with Lovenox, increase Coumadin dose hyper coagulable state Lifelong anticoagulation Hematology consult Major depression Mental health consult bilat LE pitting edema -obtain echo, -start lasix, Patient wants her morphine 4mg iv q4hrs, trazodone qhs, melantonin. 02/04/17: INR went down, await INR to start increasing then d/c back to [place] 02/05/17: she has a golf ball size soft tender mass, left lower back that was poa, from an injection give at [place], will get u/s, ?hematoma, ?lipoma vs other History Interval history: Patient was seen and examined. Follow-up on current diagnosis. Overnight uneventful. Patient denies any chest pain, shortness breath, nausea/vomiting or severe headaches. Imaging, nursing note, chart, labs and old chart reviewed. Discussed with patient. Hospitalist Physical - Physical exam Narrative exam: GEN: WDWN, NAD, AWAKE, ALERT, ORIENTATED 3 HEENT: NCAT, EOMI, PERRL, OP Clear NECK: supple, no adenopathy, no thyromegaly, no JVD CVS/HEART: RRR, NORMAL S1S2, NO JVD, pulses present bilaterally CHEST/LUNGS: CTA B, Symmetrical chest expansion, good air entry bilaterally GI/Abdomen: soft, NTND, good bowel sounds, no guarding or rebound /Bladder: no suprapubic tenderness, no CVA or paraspinal tenderness EXT/Skin: no c/c/e, obvious rash bilateral purpura rash on legs/stump, right leg amputated, stump with dependant edema MSK: FROM x 4 Neuro: CN 2-12 grossly intact, no new focal deficits Psych: pressure speech - Constitutional Vitals: Temp Pulse Resp BP Pulse Ox 98.2 F 68 20 100/50 100 02/05/17 07:42 02/05/17 07:42 02/05/17 07:42 02/05/17 07:42 02/05/17 07:42 General appearance: Present: no acute distress Results - Labs CBC & Chem 7: 02/04/17 06:16 02/04/17 06:16 Labs: Laboratory Last Values WBC 5.1 K/mm3 (4.5-11.0) 02/04/17 06:16 RBC 3.67 M/mm3 (3.65-5.03) 02/04/17 06:16 Hgb 10.6 gm/dl (10.1-14.3) 02/04/17 06:16 Hct 33.3 % (30.3-42.9) 02/04/17 06:16 MCV 91 fl (79-97) 02/04/17 06:16 MCH 29 pg (28-32) 02/04/17 06:16 MCHC 32 % (30-34) 02/04/17 06:16 RDW 14.0 % (13.2-15.2) 02/04/17 06:16 Plt Count 307 K/mm3 (140-440) 02/04/17 06:16 Lymph % (Auto) 43.4 % (13.4-35.0) H 02/02/17 20:58 Ray % (Auto) 7.3 % (0.0-7.3) 02/02/17 20:58 Eos % (Auto) 3.4 % (0.0-4.3) 02/02/17 20:58 Baso % (Auto) 1.0 % (0.0-1.8) 02/02/17 20:58 Lymph # 2.8 K/mm3 (1.2-5.4) 02/02/17 20:58 Ray # 0.5 K/mm3 (0.0-0.8) 02/02/17 20:58 Eos # 0.2 K/mm3 (0.0-0.4) 02/02/17 20:58 Baso # 0.1 K/mm3 (0.0-0.1) 02/02/17 20:58 Seg Neutrophils % 44.9 % (40.0-70.0) 02/02/17 20:58 Seg Neutrophils # 2.9 K/mm3 (1.8-7.7) 02/02/17 20:58 PT 18.1 Sec. (12.2-14.9) H 02/05/17 06:52 INR 1.42 (0.87-1.13) H 02/05/17 06:52 APTT 46.8 Sec. (24.2-36.6) H 02/02/17 20:58 D-Dimer 190.63 ng/mlDDU (0-234) 02/02/17 20:58 Sodium 139 mmol/L (137-145) 02/04/17 06:16 Potassium 4.3 mmol/L (3.6-5.0) 02/04/17 06:16 Chloride 100.0 mmol/L (98-107) 02/04/17 06:16 Carbon Dioxide 28 mmol/L (22-30) 02/04/17 06:16 Anion Gap 15 mmol/L 02/04/17 06:16 BUN 15 mg/dL (7-17) 02/04/17 06:16 Creatinine 0.5 mg/dL (0.7-1.2) L 02/04/17 06:16 Estimated GFR > 60 ml/min 02/04/17 06:16 BUN/Creatinine Ratio 30 % 02/04/17 06:16 Glucose 72 mg/dL (65-100) 02/04/17 06:16 Calcium 8.9 mg/dL (8.4-10.2) 02/04/17 06:16 Total Bilirubin < 0.20 mg/dL (0.1-1.2) 02/02/17 20:58 AST 20 units/L (5-40) 02/02/17 20:58 ALT 21 units/L (7-56) 02/02/17 20:58 Alkaline Phosphatase 105 units/L (35-129) 02/02/17 20:58 NT-Pro-B Natriuret Pep 107.0 pg/mL (0-450) 02/02/17 20:58 Total Protein 6.0 g/dL (6.3-8.2) L 02/02/17 20:58 Albumin 3.5 g/dL (3.9-5) L 02/02/17 20:58 Albumin/Globulin Ratio 1.4 % 02/02/17 20:58
[2017-02-05] MEDS: LOVENOX SUB-Q SCH ×2 (11:50→22:33)
[2017-02-05] MEDS: THERAGRAN-M Tab PO SCH (11:50)
[2017-02-05] MEDS: NEURONTIN PO SCH ×2 (11:50→22:33)
[2017-02-05] MEDS: PAXIL PO SCH (11:51)
--- NOTE | 2017-02-05 15:01 | Progress Note ---
Assessment and Plan KUB images and report reviewed. Trapeze type (permanent) filter in adequate position. No vascular surgery intervention recommended at present. Continue anticoagulation as tolerated (suspected underlying hypercoagulable state given recurrent dvt/pe). If AC needs to be stopped, she does have a filter in place. Continue lower ext elevation, compression hose, and medical optimization for symptomatic relief of pain and swelling. Will see again as needed. 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 She denies complaint at present. Objective - Constitutional Vitals: Vital Signs - 12hr 02/05/17 02/05/17 02/05/17 04:20 05:29 05:59 Temperature 97.6 F Pulse Rate 65 Respiratory 18 18 18 Rate Blood Pressure Blood Pressure 106/56 [Left] O2 Sat by Pulse 98 Oximetry 02/05/17 02/05/17 02/05/17 07:42 14:00 14:05 Temperature 98.2 F 98.4 F 98.4 F Pulse Rate 68 76 78 Respiratory 20 20 20 Rate Blood Pressure 100/50 102/49 Blood Pressure 102/49 [Left] O2 Sat by Pulse 100 100 100 Oximetry 02/05/17 14:07 Temperature 98.4 F Pulse Rate 75 Respiratory 20 Rate Blood Pressure Blood Pressure [Left] O2 Sat by Pulse 80 L Oximetry General appearance: Present: no acute distress - EENT Eyes: EOM intact ENT: hearing intact - Neck Neck: supple - Respiratory Respiratory effort: normal Extremities: no ischemia, abnormal (BKA on the left) Extremity abnormal: edema (improving) - Neurologic Neurologic: no focal deficits - Psychiatric Psychiatric: cooperative - Labs CBC & Chem 7: 02/04/17 06:16 02/04/17 06:16 Labs: Abnormal lab results 02/05/17 Range/Units 06:52 PT 18.1 H (12.2-14.9) Sec. INR 1.42 H (0.87-1.13)
[2017-02-05] MEDS: COUMADIN PO SCH (16:34)
[2017-02-05] MEDS: PEPCID PO SCH (22:33)
[2017-02-05] MEDS: DESYREL PO SCH (22:33)
[2017-02-05] MEDS: MINIPRESS PO SCH (22:57)
[2017-02-05] MEDS: ATARAX PO PRN (22:58)
[2017-02-06] MEDS: MORPHINE IV PRN ×6 (03:36→22:14)
[2017-02-06] MEDS: VALIUM PO PRN ×4 (03:38→20:11)
[2017-02-06 05:46] LABS: Hematocrit 29.8 % (30.3-42.9); Hemoglobin 10.1 gm/dl (10.1-14.3); Mean Corpuscular HGB Conc 34 % (30-34); Mean Corpuscular Hemoglobin 31 pg (28-32); Mean Corpuscular Volume 90 fl (79-97); Platelet Count 274 K/mm3 (140-440); Red Blood Count 3.32 M/mm3 (3.65-5.03); Red Cell Distribution Width 13.4 % (13.2-15.2)
[2017-02-06 05:54] LABS: INR 1.42 (0.87-1.13)
[2017-02-06 06:07] LABS: BUN/Creatinine Ratio 24; Blood Urea Nitrogen 12 mg/dL (7-17); Calcium 8.6 mg/dL (8.4-10.2); Hemolysis Index 3
[2017-02-06] MEDS: LASIX IV SCH (07:07)
[2017-02-06] MEDS: ATARAX PO PRN ×2 (07:08→15:17)
--- NOTE | 2017-02-06 09:29 | Ultrasound Report ---
ULTRASOUND SOFT TISSUE LEFT LOWER BACK: 02/05/17 10:55:00 CLINICAL: Tender left flank mass. FINDINGS: High-resolution ultrasound with a linear transducer demonstrates skin thickening and a subcutaneous complex mass contiguous to the skin. A portion of it is anechoic suggestive of fluid and it measures 2.4 x 2.2 x 1.9 cm. IMPRESSION: A 2.4 cm subcutaneous soft tissue mass. Suspect carbuncle.
[2017-02-06] MEDS: PAXIL PO SCH (10:57)
[2017-02-06] MEDS: LOVENOX SUB-Q SCH ×2 (10:57→22:12)
[2017-02-06] MEDS: THERAGRAN-M Tab PO SCH (10:58)
[2017-02-06] MEDS: ULTRAM PO PRN (10:58)
[2017-02-06] MEDS: NEURONTIN PO SCH ×2 (10:59→22:13)
--- NOTE | 2017-02-06 13:58 | Progress Note ---
Assessment and Plan Assessment and plan: Patient is a 41-year-old woman with a history of asthma, multiple sclerosis, PTSD, major depression disorder, multiple suicide attempts ("I am a cutter"), tob/etoh/polysubstance abuse and multiple VTEs who presents with left leg swollen. She is from [facility] under 1013. Venous doppler negative of acute DVT. Here for a/c Suspected DVT of left lower extremity INR subtherapeutic, will put on Lovenox and increase Coumadin dose Doppler for ultrasound has been ordered -arterial U/S also ordered Subtherapeutic INR Bridging with Lovenox, increase Coumadin dose hyper coagulable state Lifelong anticoagulation Hematology consult Major depression Mental health consult bilat LE pitting edema -obtain echo, -start lasix, Patient wants her morphine 4mg iv q4hrs, trazodone qhs, melantonin. 02/04/17: INR went down, await INR to start increasing then d/c back to [facility] 02/05/17: she has a golf ball size soft tender mass, left lower back that was poa, from an injection give at [facility], will get u/s, ?hematoma, ?lipoma vs other 02/06/17: INR still not going up, soft tissue/renal ultrasound pending History Interval history: Patient was seen and examined. Follow-up on current diagnosis. Overnight uneventful. Patient denies any chest pain, shortness breath, nausea/vomiting or severe headaches. Imaging, nursing note, chart, labs and old chart reviewed. Discussed with patient. Hospitalist Physical - Physical exam Narrative exam: GEN: WDWN, NAD, AWAKE, ALERT, ORIENTATED 3 HEENT: NCAT, EOMI, PERRL, OP Clear NECK: supple, no adenopathy, no thyromegaly, no JVD CVS/HEART: RRR, NORMAL S1S2, NO JVD, pulses present bilaterally CHEST/LUNGS: CTA B, Symmetrical chest expansion, good air entry bilaterally GI/Abdomen: soft, NTND, good bowel sounds, no guarding or rebound /Bladder: no suprapubic tenderness, no CVA or paraspinal tenderness EXT/Skin: no c/c/e, obvious rash bilateral purpura rash on legs/stump, right leg amputated, stump with dependant edema MSK: FROM x 4 Neuro: CN 2-12 grossly intact, no new focal deficits Psych: pressure speech - Constitutional Vitals: Temp Pulse Resp BP Pulse Ox 99.7 F H 86 18 114/48 98 02/05/17 20:27 02/05/17 20:27 02/06/17 07:07 02/05/17 20:27 02/05/17 20:27 General appearance: Present: no acute distress Results - Labs CBC & Chem 7: 02/06/17 05:30 02/06/17 05:30 Labs: Laboratory Last Values WBC 6.1 K/mm3 (4.5-11.0) 02/06/17 05:30 RBC 3.32 M/mm3 (3.65-5.03) L 02/06/17 05:30 Hgb 10.1 gm/dl (10.1-14.3) 02/06/17 05:30 Hct 29.8 % (30.3-42.9) L 02/06/17 05:30 MCV 90 fl (79-97) 02/06/17 05:30 MCH 31 pg (28-32) 02/06/17 05:30 MCHC 34 % (30-34) 02/06/17 05:30 RDW 13.4 % (13.2-15.2) 02/06/17 05:30 Plt Count 274 K/mm3 (140-440) 02/06/17 05:30 Lymph % (Auto) 43.4 % (13.4-35.0) H 02/02/17 20:58 [place] % (Auto) 7.3 % (0.0-7.3) 02/02/17 20:58 Eos % (Auto) 3.4 % (0.0-4.3) 02/02/17 20:58 Baso % (Auto) 1.0 % (0.0-1.8) 02/02/17 20:58 Lymph # 2.8 K/mm3 (1.2-5.4) 02/02/17 20:58 [place] # 0.5 K/mm3 (0.0-0.8) 02/02/17 20:58 Eos # 0.2 K/mm3 (0.0-0.4) 02/02/17 20:58 Baso # 0.1 K/mm3 (0.0-0.1) 02/02/17 20:58 Seg Neutrophils % 44.9 % (40.0-70.0) 02/02/17 20:58 Seg Neutrophils # 2.9 K/mm3 (1.8-7.7) 02/02/17 20:58 PT 18.1 Sec. (12.2-14.9) H 02/06/17 05:30 INR 1.42 (0.87-1.13) H 02/06/17 05:30 APTT 46.8 Sec. (24.2-36.6) H 02/02/17 20:58 D-Dimer 190.63 ng/mlDDU (0-234) 02/02/17 20:58 Sodium 137 mmol/L (137-145) 02/06/17 05:30 Potassium 4.4 mmol/L (3.6-5.0) 02/06/17 05:30 Chloride 99.6 mmol/L (98-107) 02/06/17 05:30 Carbon Dioxide 30 mmol/L (22-30) 02/06/17 05:30 Anion Gap 12 mmol/L 02/06/17 05:30 BUN 12 mg/dL (7-17) 02/06/17 05:30 Creatinine 0.5 mg/dL (0.7-1.2) L 02/06/17 05:30 Estimated GFR > 60 ml/min 02/06/17 05:30 BUN/Creatinine Ratio 24 % 02/06/17 05:30 Glucose 91 mg/dL (65-100) 02/06/17 05:30 Calcium 8.6 mg/dL (8.4-10.2) 02/06/17 05:30 Magnesium 1.80 mg/dL (1.7-2.3) 02/06/17 05:30 Total Bilirubin < 0.20 mg/dL (0.1-1.2) 02/02/17 20:58 AST 20 units/L (5-40) 02/02/17 20:58 ALT 21 units/L (7-56) 02/02/17 20:58 Alkaline Phosphatase 105 units/L (35-129) 02/02/17 20:58 NT-Pro-B Natriuret Pep 107.0 pg/mL (0-450) 02/02/17 20:58 Total Protein 6.0 g/dL (6.3-8.2) L 02/02/17 20:58 Albumin 3.5 g/dL (3.9-5) L 02/02/17 20:58 Albumin/Globulin Ratio 1.4 % 02/02/17 20:58
[2017-02-06] MEDS ORDERED: XYLOCAINE 1% 20 mL INFILTRATI STA (15:27)
--- NOTE | 2017-02-06 16:18 | Operative Report ---
Operative Report Operative Report: Date of procedure: 02/06/17 Preprocedure diagnosis: Left lower back abscess Postprocedure diagnosis: Left lower back abscess Procedure performed: Incision and drainage of left lower back abscess Surgeon:[place] OJEDA Anesthesia: Local Specimen: Wound culture EBL: 5 mL Complications: None Indication: Patient is a 41-year-old female who presented to the hospital with complaints of lower extremity pain and swelling. She was found to have a DVT and is being treated with therapeutic Lovenox and being transitioned to Coumadin by mouth. The patient noted a lump on her left lower back which is increased in size and become more painful over the last week. An ultrasound was performed which showed a complex fluid collection, likely a carbuncle. The patient was consented for incision and drainage of abscess, all risks and benefits were discussed and questions answered. Procedure in detail: The patient was identified at the bedside and a timeout performed. The left lower back over the area of fluctuance was prepped with Betadine. One percent lidocaine was infiltrated into the skin over the area of fluctuance. A total of 3 mL was used. Using an 11 blade a 1 cm incision was made in the skin and subcutaneous tissue. Using a cotton tip applicator the abscess cavity was bluntly entered and there was minimal drainage of pus, less than 2 mL. Cultures were obtained. There was also drainage of serosanguineous fluid, proximately 10 mL, which was completely evacuated until the area of fluctuance resolved. Hemostasis was achieved by packing of Surgicel, 2 pieces into the wound and pressure. At the end of the procedure there was no bleeding. The wound was covered with a compression dressing consisting of 4 x 4 gauze and tape. The patient tolerated the procedure well. All sharps were disposed of appropriately.
--- NOTE | 2017-02-06 16:22 | Consultation ---
History of Present Illness Consult date: 02/06/17 Chief complaint: Left lower back lump - History of present illness History of present illness: 41-year-old female with a history of obesity, bipolar disorder, right lower extremity amputation presented to the hospital with complaints of swelling in her lower extremities. She was found to have a DVT and is currently being treated with therapeutic Lovenox and being transitioned to by mouth Coumadin. The patient also has been complaining of a lump on her left lower back which has become larger in size and more tender over the last week. She only noticed this one week ago. She has never had anything like this before. She denies any drainage. A ultrasound of the soft tissue of the left lower back was performed over the area of concern and showed a fluid collection, likely a carbuncle. General surgery consultation for this. The patient denies any fevers or chills, chest pain, shortness of breath, nausea/vomiting, abdominal pain. Past History Past Medical History: DVT, pulmonary embolism, other (major depression, suicide attempts, asthma) Past Surgical History: Other (right BKA, lap band surgery) Social history: smoking, alcohol abuse, other (cocaine and marijuana abuse, patient is essentially homeless by report) Family history: hypertension Medications and Allergies Allergies Allergy/AdvReac Type Severity Reaction Status Date / Time haloperidol [From Haldol] Allergy Anaphylaxis Verified 01/09/17 17:42 ziprasidone [From Geodon] Allergy Anaphylaxis Verified 01/20/17 10:47 Home Medications Medication Instructions Recorded Confirmed Last Taken Type Diazepam 2.5 mg PO Q4H PRN 01/20/17 02/03/17 01/19/17 History Famotidine [Pepcid] 20 mg PO QHS 01/20/17 02/03/17 01/18/17 History Gabapentin [Neurontin] 800 mg PO BID 01/20/17 02/03/17 01/19/17 History Hydroxyzine HCl [hydrOXYzine] 50 mg PO Q8H PRN 01/20/17 02/03/17 01/15/17 History Melatonin 10 mg PO QHS 01/20/17 02/03/17 01/18/17 History Meloxicam [Mobic] 15 mg PO DAILY 01/20/17 02/03/17 01/19/17 History Multivit-Min/Iron Fum/Folic AC 1 each PO DAILY 01/20/17 02/03/17 01/18/17 History [Gwioi-Jlpbkfr-Twlnohca Tablet] Prazosin [Minipress] 2 mg PO QHS 01/20/17 02/03/17 01/18/17 History PARoxetine [Paxil] 30 mg PO DAILY tablet 01/22/17 02/03/17 Unknown Rx Warfarin [Coumadin] 10 mg PO DAILY@1700 30 Days tablet 01/22/17 02/03/17 Unknown Rx Active Meds: Active Medications Acetaminophen (Tylenol) 650 mg PO Q4H PRN PRN Reason: Pain MILD(1-3)/Fever >100.5/LEWIS Bisacodyl (Dulcolax) 10 mg SC QDAY PRN PRN Reason: Constipation unrelieved by MOM Cephalexin (Keflex) 500 mg PO Q6HR [facility] Diazepam (Valium) 2.5 mg PO Q4H PRN PRN Reason: Anxiety Last Admin: 02/06/17 15:17 Dose: 2.5 mg Enoxaparin Sodium (Lovenox) 90 mg SUB-Q Q12HR [facility] Last Admin: 02/06/17 10:57 Dose: 90 mg Famotidine (Pepcid) 20 mg PO QHS [facility] Last Admin: 02/05/17 22:33 Dose: 20 mg Furosemide (Lasix) 20 mg IV DAILY@0600 [facility] Last Admin: 02/06/17 07:07 Dose: 20 mg Gabapentin (Neurontin) 800 mg PO BID [facility] Last Admin: 02/06/17 10:59 Dose: 800 mg Hydroxyzine HCl (Atarax) 50 mg PO Q8H PRN PRN Reason: Anxiety Last Admin: 02/06/17 15:17 Dose: 50 mg Magnesium Hydroxide (Milk Of Magnesia) 30 ml PO Q4H PRN PRN Reason: Constipation Morphine Sulfate (Morphine) 4 mg IV Q4H PRN PRN Reason: Pain , Severe (7-10) Last Admin: 02/06/17 15:18 Dose: 4 mg Multivitamins/Minerals (Theragran-M Tab) 1 each PO QDAY [facility] Last Admin: 02/06/17 10:58 Dose: 1 each Paroxetine HCl (Paxil) 30 mg PO DAILY [facility] Last Admin: 02/06/17 10:57 Dose: 30 mg Prazosin HCl (Minipress) 2 mg PO QHS [facility] Last Admin: 02/05/17 22:57 Dose: 2 mg Tramadol HCl (Ultram) 100 mg PO Q6H PRN PRN Reason: Pain, Moderate (4-6) Last Admin: 02/06/17 10:58 Dose: 100 mg Trazodone HCl (Desyrel) 150 mg PO QHS [facility] Last Admin: 02/05/17 22:33 Dose: 150 mg Warfarin Sodium (Coumadin Pharmacy To Dose) 1 each PO PKCONSULT [facility] PRN Reason: Protocol Warfarin Sodium (Coumadin) 10 mg PO DAILY@1700 [facility] PRN Reason: Protocol Last Admin: 02/05/17 16:34 Dose: 10 mg Review of Systems All systems: negative (see hpi) Exam Vital Signs Temp Pulse Resp BP Pulse Ox 9.4 F L 81 21 91/60 100 02/02/17 19:35 02/02/17 19:35 02/02/17 19:35 02/02/17 19:35 02/02/17 19:35 Narrative exam: General: Awake, alert, oriented 3. No apparent distress CV: S1, S2 present Respiratory: No audible wheezes Abdomen: Soft, morbidly obese Extremities: Right lower extremity BKA Back: There is a round, well-circumscribed area of fluctuance below the skin in the left lower back which is tender to palpation. This measures approximately 3 x 3 cm. There is no evidence of cellulitis or erythema. There is no evidence of drainage. Results - Labs 02/06/17 05:30 02/06/17 05:30 Abnormal lab results 02/06/17 02/06/17 02/06/17 Range/Units 05:30 05:30 05:30 RBC 3.32 L (3.65-5.03) M/mm3 Hct 29.8 L (30.3-42.9) % PT 18.1 H (12.2-14.9) Sec. INR 1.42 H (0.87-1.13) Creatinine 0.5 L (0.7-1.2) mg/dL Diabetes panel 02/06/17 Range/Units 05:30 Sodium 137 (137-145) mmol/L Potassium 4.4 (3.6-5.0) mmol/L Chloride 99.6 (98-107) mmol/L Carbon Dioxide 30 (22-30) mmol/L BUN 12 (7-17) mg/dL Creatinine 0.5 L (0.7-1.2) mg/dL Glucose 91 (65-100) mg/dL Calcium 8.6 (8.4-10.2) mg/dL Calcium panel 02/06/17 Range/Units 05:30 Calcium 8.6 (8.4-10.2) mg/dL Pituitary panel 02/06/17 Range/Units 05:30 Sodium 137 (137-145) mmol/L Potassium 4.4 (3.6-5.0) mmol/L Chloride 99.6 (98-107) mmol/L Carbon Dioxide 30 (22-30) mmol/L BUN 12 (7-17) mg/dL Creatinine 0.5 L (0.7-1.2) mg/dL Glucose 91 (65-100) mg/dL Calcium 8.6 (8.4-10.2) mg/dL Adrenal panel 02/06/17 Range/Units 05:30 Sodium 137 (137-145) mmol/L Potassium 4.4 (3.6-5.0) mmol/L Chloride 99.6 (98-107) mmol/L Carbon Dioxide 30 (22-30) mmol/L BUN 12 (7-17) mg/dL Creatinine 0.5 L (0.7-1.2) mg/dL Glucose 91 (65-100) mg/dL Calcium 8.6 (8.4-10.2) mg/dL - Imaging Additional studies: Ultrasound left lower back soft tissue: 2.4 cm soft tissue mass, suspect carbuncle. I reviewed the ultrasound images and the patient has a fluid-filled collection below the skin. Assessment and Plan 41-year-old female with 1. Left lower back abscess, likely infected cyst 2. DVT 3. Morbid obesity 4. Bipolar disorder Plan: 1. Will perform bedside incision and drainage of the abscess and obtain cultures, consent obtained 2. Start by mouth Keflex 3. Daily wound care, I will reevaluate the wound and the am 4. Continue anticoagulation for DVT 5. Recommend transitioning to by mouth pain control
[2017-02-06] MEDS: COUMADIN PO SCH (16:42)
[2017-02-06] MEDS: KEFLEX PO SCH (17:17)
[2017-02-06] MEDS: MINIPRESS PO SCH (22:13)
[2017-02-06] MEDS: PEPCID PO SCH (22:13)
[2017-02-06] MEDS: DESYREL PO SCH (22:13)
[2017-02-07] MEDS: KEFLEX PO SCH ×4 (01:17→18:30)
[2017-02-07] MEDS: ATARAX PO PRN ×3 (02:04→18:30)
[2017-02-07] MEDS: MORPHINE IV PRN ×5 (02:05→18:30)
[2017-02-07] MEDS: VALIUM PO PRN ×5 (02:05→18:30)
[2017-02-07] MEDS: LASIX IV SCH (06:27)
--- NOTE | 2017-02-07 07:40 | Progress Note ---
Assessment and Plan 41-year-old female with 1. Left lower back abscess, likely infected cyst 2. DVT 3. Morbid obesity 4. Bipolar disorder Plan: 1. leave dressing intact for today and tomorrow -> I will reassess wound and change dressing on 02/10/16 2. Keflex for 7 days 3. Continue anticoagulation for DVT 4. Recommend transitioning to by mouth pain control 5. I explained to the patient that she likely has a cyst of her left lower back which will reaccumulate fluid. If this becomes bothersome, she can follow- up in the surgery clinic for elective excision as an outpatient. I explained to the patient that she will have to discontinue Coumadin for surgery once she is medically cleared. Subjective Date of service: 02/07/17 Narrative: Patient seen and examined at bedside. No acute complaints. Patient appears to be in good spirits. No overnight events. No fever/chills. Objective Vital Signs - 12hr 02/06/17 02/06/17 02/06/17 22:00 22:14 22:17 Temperature 98.4 F Pulse Rate 79 Respiratory 18 18 Rate Respiratory 18 Rate [Right Leg ] Blood Pressure 112/61 O2 Sat by Pulse 97 Oximetry 02/07/17 02/07/17 02/07/17 02:05 06:29 07:29 Temperature 98.5 F Pulse Rate 68 Respiratory 18 18 18 Rate Respiratory Rate [Right Leg ] Blood Pressure 108/63 O2 Sat by Pulse 97 Oximetry - General physical appearance Narrative Exam: Gen: AAOx3. NAD Back: dressing removed. Surgicel removed from wound. Wound packed with 1/4 inch iodoform (one piece) and corner of one piece of surgicel. Minimal bleeding was controlled with pressure which resolved completely. Compression dressing applied and secured with tape. - Labs 02/06/17 05:30 02/06/17 05:30
[2017-02-07 09:01] LABS: INR 1.83 (0.87-1.13)
[2017-02-07] MEDS: LOVENOX SUB-Q SCH (10:41)
[2017-02-07] MEDS: THERAGRAN-M Tab PO SCH (10:43)
[2017-02-07] MEDS: NEURONTIN PO SCH (10:43)
[2017-02-07] MEDS: PAXIL PO SCH (10:43)
--- NOTE | 2017-02-07 17:02 | Progress Note ---
Assessment and Plan Assessment and plan: Patient is a 41-year-old woman with a history of asthma, multiple sclerosis, PTSD, major depression disorder, multiple suicide attempts ("I am a cutter"), tob/etoh/polysubstance abuse and multiple VTEs who presents with left leg swollen. She is from [facility] under 1013. Venous doppler negative of acute DVT. Here for a/c Suspected DVT of left lower extremity INR subtherapeutic, will put on Lovenox and increase Coumadin dose Doppler for ultrasound has been ordered -arterial U/S also ordered Subtherapeutic INR Bridging with Lovenox, increase Coumadin dose hyper coagulable state Lifelong anticoagulation Hematology consult Major depression Mental health consult bilat LE pitting edema -obtain echo, -start lasix, Patient wants her morphine 4mg iv q4hrs, trazodone qhs, melantonin. 02/04/17: INR went down, await INR to start increasing then d/c back to [facility] 02/05/17: she has a golf ball size soft tender mass, left lower back that was poa, from an injection give at [facility], will get u/s, ?hematoma, ?lipoma vs other 02/06/17: INR still not going up, soft tissue/renal ultrasound pending==> infected cyst s/p i-n-d 02/07/17: InR finally increasing, d/c to [facility] in 2-3 days, Surgeon wants to evaluate wound on Wednesday. History Interval history: Patient was seen and examined. Follow-up on current diagnosis. Overnight uneventful. Patient denies any chest pain, shortness breath, nausea/vomiting or severe headaches. Imaging, nursing note, chart, labs and old chart reviewed. Discussed with patient. Hospitalist Physical - Physical exam Narrative exam: GEN: WDWN, NAD, AWAKE, ALERT, ORIENTATED 3 HEENT: NCAT, EOMI, PERRL, OP Clear NECK: supple, no adenopathy, no thyromegaly, no JVD CVS/HEART: RRR, NORMAL S1S2, NO JVD, pulses present bilaterally CHEST/LUNGS: CTA B, Symmetrical chest expansion, good air entry bilaterally GI/Abdomen: soft, NTND, good bowel sounds, no guarding or rebound /Bladder: no suprapubic tenderness, no CVA or paraspinal tenderness EXT/Skin: no c/c/e, obvious rash bilateral purpura rash on legs/stump, right leg amputated, stump with dependant edema MSK: FROM x 4 Neuro: CN 2-12 grossly intact, no new focal deficits Psych: pressure speech - Constitutional Vitals: Temp Pulse Resp BP Pulse Ox 98.5 F 79 20 116/44 98 02/07/17 16:18 02/07/17 16:18 02/07/17 16:18 02/07/17 16:18 02/07/17 16:18 General appearance: Present: no acute distress Results - Labs CBC & Chem 7: 02/06/17 05:30 02/06/17 05:30 Labs: Laboratory Last Values WBC 6.1 K/mm3 (4.5-11.0) 02/06/17 05:30 RBC 3.32 M/mm3 (3.65-5.03) L 02/06/17 05:30 Hgb 10.1 gm/dl (10.1-14.3) 02/06/17 05:30 Hct 29.8 % (30.3-42.9) L 02/06/17 05:30 MCV 90 fl (79-97) 02/06/17 05:30 MCH 31 pg (28-32) 02/06/17 05:30 MCHC 34 % (30-34) 02/06/17 05:30 RDW 13.4 % (13.2-15.2) 02/06/17 05:30 Plt Count 274 K/mm3 (140-440) 02/06/17 05:30 Lymph % (Auto) 43.4 % (13.4-35.0) H 02/02/17 20:58 [place] % (Auto) 7.3 % (0.0-7.3) 02/02/17 20:58 Eos % (Auto) 3.4 % (0.0-4.3) 02/02/17 20:58 Baso % (Auto) 1.0 % (0.0-1.8) 02/02/17 20:58 Lymph # 2.8 K/mm3 (1.2-5.4) 02/02/17 20:58 [place] # 0.5 K/mm3 (0.0-0.8) 02/02/17 20:58 Eos # 0.2 K/mm3 (0.0-0.4) 02/02/17 20:58 Baso # 0.1 K/mm3 (0.0-0.1) 02/02/17 20:58 Seg Neutrophils % 44.9 % (40.0-70.0) 02/02/17 20:58 Seg Neutrophils # 2.9 K/mm3 (1.8-7.7) 02/02/17 20:58 PT 22.2 Sec. (12.2-14.9) H 02/07/17 08:19 INR 1.83 (0.87-1.13) H 02/07/17 08:19 APTT 46.8 Sec. (24.2-36.6) H 02/02/17 20:58 D-Dimer 190.63 ng/mlDDU (0-234) 02/02/17 20:58 Sodium 137 mmol/L (137-145) 02/06/17 05:30 Potassium 4.4 mmol/L (3.6-5.0) 02/06/17 05:30 Chloride 99.6 mmol/L (98-107) 02/06/17 05:30 Carbon Dioxide 30 mmol/L (22-30) 02/06/17 05:30 Anion Gap 12 mmol/L 02/06/17 05:30 BUN 12 mg/dL (7-17) 02/06/17 05:30 Creatinine 0.5 mg/dL (0.7-1.2) L 02/06/17 05:30 Estimated GFR > 60 ml/min 02/06/17 05:30 BUN/Creatinine Ratio 24 % 02/06/17 05:30 Glucose 91 mg/dL (65-100) 02/06/17 05:30 Calcium 8.6 mg/dL (8.4-10.2) 02/06/17 05:30 Magnesium 1.80 mg/dL (1.7-2.3) 02/06/17 05:30 Total Bilirubin < 0.20 mg/dL (0.1-1.2) 02/02/17 20:58 AST 20 units/L (5-40) 02/02/17 20:58 ALT 21 units/L (7-56) 02/02/17 20:58 Alkaline Phosphatase 105 units/L (35-129) 02/02/17 20:58 NT-Pro-B Natriuret Pep 107.0 pg/mL (0-450) 02/02/17 20:58 Total Protein 6.0 g/dL (6.3-8.2) L 02/02/17 20:58 Albumin 3.5 g/dL (3.9-5) L 02/02/17 20:58 Albumin/Globulin Ratio 1.4 % 02/02/17 20:58
[2017-02-07] MEDS: COUMADIN PO SCH (17:30)
[2017-02-07] MEDS: ULTRAM PO PRN (18:30)
[2017-02-08] MEDS: DESYREL PO SCH ×2 (00:06→22:21)
[2017-02-08] MEDS: PEPCID PO SCH ×2 (00:07→22:22)
[2017-02-08] MEDS: NEURONTIN PO SCH ×3 (00:07→22:22)
[2017-02-08] MEDS: MINIPRESS PO SCH ×2 (00:08→22:22)
[2017-02-08] MEDS: VALIUM PO PRN ×6 (00:08→23:46)
[2017-02-08] MEDS: MORPHINE IV PRN ×6 (00:09→23:45)
[2017-02-08] MEDS: LOVENOX SUB-Q SCH ×2 (00:09→10:20)
[2017-02-08] MEDS: KEFLEX PO SCH ×5 (00:11→23:48)
[2017-02-08] MEDS: LASIX IV SCH (05:45)
[2017-02-08 07:47] LABS: INR 1.64 (0.87-1.13)
[2017-02-08] MEDS: THERAGRAN-M Tab PO SCH (10:20)
[2017-02-08] MEDS: PAXIL PO SCH (10:20)
[2017-02-08] MEDS: ATARAX PO PRN ×2 (10:22→19:27)
--- NOTE | 2017-02-08 13:57 | Progress Note ---
Assessment and Plan Assessment and plan: Patient is a 41-year-old woman with a history of asthma, multiple sclerosis, PTSD, pvd with right bka, major depression disorder, multiple suicide attempts ( "I am a cutter"), tob/etoh/polysubstance abuse and multiple VTEs who presents with left leg swollen. She is from [facility] under 1013. Venous doppler negative of acute DVT. Here for a/c Chronic DVT of left lower extremity INR subtherapeutic, will put on Lovenox and increase Coumadin dose Doppler for ultrasound has been ordered Cystic abscess s/p I-n-d on oral keflex Subtherapeutic INR Bridging with Lovenox, increase Coumadin dose hyper coagulable state Lifelong anticoagulation Hematology consult Major depression Mental health consult bilat LE pitting edema -02/03/17 Transthoracic echocardiogram reported as global ventricular systolic function is normal, estimated EF is 60-65%, mild concentric left ventricular hypertrophy, trace MR, ukxm-mg-rpquhane TR, mild hypertension, right ventricular systolic pressure is calculated at 40 mmHg -On lasix, for dep edema Patient wants her morphine 4mg iv q4hrs, trazodone qhs, melantonin. 02/04/17: INR went down, await INR to start increasing then d/c back to [facility] 02/05/17: She has a golf ball size soft tender mass, left lower back that was poa, from an injection give at [facility], will get u/s, ?hematoma, ?lipoma vs abscess vs other primary 02/06/17: INR still not going up, soft tissue/renal ultrasound pending== >infected cyst s/p i-n-d 02/07/17: INR finally increasing, d/c to [facility] in 2-3 days, Surgeon wants to evaluate wound on Wednesday. 02/08/2017: INR decreased again. Dose up to 12mg/day of Warfarin, I Suspect Warfarin resistance, start Eliquis and stop Warfarin. Patient doesn't want to go to [facility] because of bad experience but wants to go another psych facility. I d/w Case management, d/c tomorrow to inpatient psych after Surgeon re- evaluated the abscess History Interval history: Patient was seen and examined. Follow-up on current diagnosis. Overnight uneventful. Patient denies any chest pain, shortness breath, nausea/vomiting or severe headaches. Imaging, nursing note, chart, labs and old chart reviewed. Discussed with patient. Hospitalist Physical - Physical exam Narrative exam: GEN: WDWN, NAD, AWAKE, ALERT, ORIENTATED 3 HEENT: NCAT, EOMI, PERRL, OP Clear NECK: supple, no adenopathy, no thyromegaly, no JVD CVS/HEART: RRR, NORMAL S1S2, NO JVD, pulses present bilaterally CHEST/LUNGS: CTA B, Symmetrical chest expansion, good air entry bilaterally GI/Abdomen: soft, NTND, good bowel sounds, no guarding or rebound /Bladder: no suprapubic tenderness, no CVA or paraspinal tenderness EXT/Skin: no c/c/e, obvious rash bilateral purpura rash on legs/stump, right leg amputated, stump with dependant edema MSK: FROM x 4 Neuro: CN 2-12 grossly intact, no new focal deficits Psych: pressure speech - Constitutional Vitals: Temp Pulse Resp BP Pulse Ox 98.2 F 76 20 108/72 100 02/08/17 07:45 02/08/17 07:45 02/08/17 07:45 02/08/17 07:45 02/08/17 07:45 General appearance: Present: no acute distress Results - Labs CBC & Chem 7: 02/06/17 05:30 02/06/17 05:30 Labs: Laboratory Last Values WBC 6.1 K/mm3 (4.5-11.0) 02/06/17 05:30 RBC 3.32 M/mm3 (3.65-5.03) L 02/06/17 05:30 Hgb 10.1 gm/dl (10.1-14.3) 02/06/17 05:30 Hct 29.8 % (30.3-42.9) L 02/06/17 05:30 MCV 90 fl (79-97) 02/06/17 05:30 MCH 31 pg (28-32) 02/06/17 05:30 MCHC 34 % (30-34) 02/06/17 05:30 RDW 13.4 % (13.2-15.2) 02/06/17 05:30 Plt Count 274 K/mm3 (140-440) 02/06/17 05:30 Lymph % (Auto) 43.4 % (13.4-35.0) H 02/02/17 20:58 [place] % (Auto) 7.3 % (0.0-7.3) 02/02/17 20:58 Eos % (Auto) 3.4 % (0.0-4.3) 02/02/17 20:58 Baso % (Auto) 1.0 % (0.0-1.8) 02/02/17 20:58 Lymph # 2.8 K/mm3 (1.2-5.4) 02/02/17 20:58 [place] # 0.5 K/mm3 (0.0-0.8) 02/02/17 20:58 Eos # 0.2 K/mm3 (0.0-0.4) 02/02/17 20:58 Baso # 0.1 K/mm3 (0.0-0.1) 02/02/17 20:58 Seg Neutrophils % 44.9 % (40.0-70.0) 02/02/17 20:58 Seg Neutrophils # 2.9 K/mm3 (1.8-7.7) 02/02/17 20:58 PT 20.4 Sec. (12.2-14.9) H 02/08/17 07:16 INR 1.64 (0.87-1.13) H 02/08/17 07:16 APTT 46.8 Sec. (24.2-36.6) H 02/02/17 20:58 D-Dimer 190.63 ng/mlDDU (0-234) 02/02/17 20:58 Sodium 137 mmol/L (137-145) 02/06/17 05:30 Potassium 4.4 mmol/L (3.6-5.0) 02/06/17 05:30 Chloride 99.6 mmol/L (98-107) 02/06/17 05:30 Carbon Dioxide 30 mmol/L (22-30) 02/06/17 05:30 Anion Gap 12 mmol/L 02/06/17 05:30 BUN 12 mg/dL (7-17) 02/06/17 05:30 Creatinine 0.5 mg/dL (0.7-1.2) L 02/06/17 05:30 Estimated GFR > 60 ml/min 02/06/17 05:30 BUN/Creatinine Ratio 24 % 02/06/17 05:30 Glucose 91 mg/dL (65-100) 02/06/17 05:30 Calcium 8.6 mg/dL (8.4-10.2) 02/06/17 05:30 Magnesium 1.80 mg/dL (1.7-2.3) 02/06/17 05:30 Total Bilirubin < 0.20 mg/dL (0.1-1.2) 02/02/17 20:58 AST 20 units/L (5-40) 02/02/17 20:58 ALT 21 units/L (7-56) 02/02/17 20:58 Alkaline Phosphatase 105 units/L (35-129) 02/02/17 20:58 NT-Pro-B Natriuret Pep 107.0 pg/mL (0-450) 02/02/17 20:58 Total Protein 6.0 g/dL (6.3-8.2) L 02/02/17 20:58 Albumin 3.5 g/dL (3.9-5) L 02/02/17 20:58 Albumin/Globulin Ratio 1.4 % 02/02/17 20:58
[2017-02-08] MEDS ORDERED: COUMADIN PO SCH (17:00)
[2017-02-08] MEDS: ELIQUIS PO SCH (22:59)
[2017-02-09] MEDS: VALIUM PO PRN ×4 (06:07→18:41)
[2017-02-09] MEDS: MORPHINE IV PRN ×4 (06:09→18:41)
[2017-02-09] MEDS: KEFLEX PO SCH ×4 (06:09→22:50)
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
--- NOTE | 2017-02-09 09:58 | Progress Note ---
Assessment and Plan 41-year-old female with 1. Left lower back cyst 2. DVT 3. Morbid obesity 4. Bipolar disorder Plan: 1. patient may leave wound open to air and shower 2. complete 7 day course of keflex - end 3. continue anticoagulation- on eliquis 4. If patient wishes to have cyst excised, may follow up as outpatient in surgery clinic when medically cleared to hold eliquis for 3 days perioperatively. 5. ok for dc from surgery standpoint. The plan was discussed with the patient and Dr. Kimbrough. Subjective Date of service: 02/09/17 Narrative: Pt seen and examined. No complaints. No acute events over the last 24 hours. Objective Vital Signs - 12hr 02/08/17 02/09/17 02/09/17 22:22 07:53 08:06 Pulse Rate 78 74 Respiratory 20 20 Rate Blood Pressure 110/76 96/50 Blood Pressure 96/50 [Left] O2 Sat by Pulse 99 Oximetry - General physical appearance Narrative Exam: Gen: AAOx3. NAD Back: small open wound, packing removed. No drainage or surrounding erythema. Wound cleaned with cotton tip applicator. No bleeding. Covered with soft foam dressing. - Labs 02/06/17 05:30 02/06/17 05:30
[2017-02-09] MEDS: ATARAX PO PRN (10:36)
[2017-02-09] MEDS: NEURONTIN PO SCH ×2 (10:36→22:49)
[2017-02-09] MEDS: LASIX PO SCH (10:37)
[2017-02-09] MEDS: PAXIL PO SCH (10:37)
[2017-02-09] MEDS: ELIQUIS PO SCH ×2 (10:37→22:49)
[2017-02-09] MEDS: THERAGRAN-M Tab PO SCH (10:38)
--- NOTE | 2017-02-09 11:25 | Progress Note ---
Assessment and Plan Assessment and plan: Patient is a 41-year-old woman with a history of asthma, multiple sclerosis, PTSD, pvd with right bka, major depression disorder, multiple suicide attempts ( "I am a cutter"), tob/etoh/polysubstance abuse and multiple VTEs who presents with left leg swollen. She is from [place] under 1013. Venous doppler negative of acute DVT. Here for a/c Chronic DVT of left lower extremity INR subtherapeutic, will put on Lovenox and increase Coumadin dose Doppler for ultrasound has been ordered Cystic abscess s/p I-n-d on oral keflex Subtherapeutic INR Bridging with Lovenox, increase Coumadin dose hyper coagulable state Lifelong anticoagulation Hematology consult Major depression Mental health consult bilat LE pitting edema -02/03/17 Transthoracic echocardiogram reported as global ventricular systolic function is normal, estimated EF is 60-65%, mild concentric left ventricular hypertrophy, trace MR, [id number]-[id number]-ahrvbuxc TR, mild hypertension, right ventricular systolic pressure is calculated at 40 mmHg -On lasix, for dep edema Patient wants her morphine 4mg iv q4hrs, trazodone qhs, melantonin. 02/04/17: INR went down, await INR to start increasing then d/c back to [facility] 02/05/17: She has a golf ball size soft tender mass, left lower back that was poa, from an injection give at [facility], will get u/s, ?hematoma, ?lipoma vs abscess vs other primary 02/06/17: INR still not going up, soft tissue/renal ultrasound pending== >infected cyst s/p i-n-d 02/07/17: INR finally increasing, d/c to [facility] in 2-3 days, Surgeon wants to evaluate wound on Wednesday. 02/08/2017: INR decreased again. Dose up to 12mg/day of Warfarin, I Suspect Warfarin resistance, start Eliquis and stop Warfarin. Patient doesn't want to go to [facility] because of bad experience but wants to go another psych facility. I d/w Case management, d/c tomorrow to inpatient psych after Surgeon re- evaluated the abscess 02/09/2017: we spoke at depth regarding Eliquis, she took Xarelto in the past and experienced vaginal bleeding, risk/benefit explained in depth. I told her to see roofing foreman regardless of warfarin/eliguis or xarelto. d/w Surgeon. she is ok to be discharge to mental health. also spoke with case management regarding which psych facility. D/c today History Interval history: Patient was seen and examined. Follow-up on current diagnosis. Overnight uneventful. Patient denies any chest pain, shortness breath, nausea/vomiting or severe headaches. Imaging, nursing note, chart, labs and old chart reviewed. Discussed with patient. Hospitalist Physical - Physical exam Narrative exam: GEN: WDWN, NAD, AWAKE, ALERT, ORIENTATED 3 HEENT: NCAT, EOMI, PERRL, OP Clear NECK: supple, no adenopathy, no thyromegaly, no JVD CVS/HEART: RRR, NORMAL S1S2, NO JVD, pulses present bilaterally CHEST/LUNGS: CTA B, Symmetrical chest expansion, good air entry bilaterally GI/Abdomen: soft, NTND, good bowel sounds, no guarding or rebound /Bladder: no suprapubic tenderness, no CVA or paraspinal tenderness EXT/Skin: no c/c/e, obvious rash bilateral purpura rash on legs/stump, right leg amputated, stump with dependant edema MSK: FROM x 4 Neuro: CN 2-12 grossly intact, no new focal deficits Psych: pressure speech - Constitutional Vitals: Temp Pulse Resp BP Pulse Ox 99.3 F 74 20 96/50 99 02/08/17 16:22 02/09/17 08:06 02/09/17 08:06 02/09/17 08:06 02/09/17 08:06 General appearance: Present: no acute distress Results - Labs CBC & Chem 7: 02/06/17 05:30 02/06/17 05:30 Labs: Laboratory Last Values WBC 6.1 K/mm3 (4.5-11.0) 02/06/17 05:30 RBC 3.32 M/mm3 (3.65-5.03) L 02/06/17 05:30 Hgb 10.1 gm/dl (10.1-14.3) 02/06/17 05:30 Hct 29.8 % (30.3-42.9) L 02/06/17 05:30 MCV 90 fl (79-97) 02/06/17 05:30 MCH 31 pg (28-32) 02/06/17 05:30 MCHC 34 % (30-34) 02/06/17 05:30 RDW 13.4 % (13.2-15.2) 02/06/17 05:30 Plt Count 274 K/mm3 (140-440) 02/06/17 05:30 Lymph % (Auto) 43.4 % (13.4-35.0) H 02/02/17 20:58 Beaver % (Auto) 7.3 % (0.0-7.3) 02/02/17 20:58 Eos % (Auto) 3.4 % (0.0-4.3) 02/02/17 20:58 Baso % (Auto) 1.0 % (0.0-1.8) 02/02/17 20:58 Lymph # 2.8 K/mm3 (1.2-5.4) 02/02/17 20:58 Beaver # 0.5 K/mm3 (0.0-0.8) 02/02/17 20:58 Eos # 0.2 K/mm3 (0.0-0.4) 02/02/17 20:58 Baso # 0.1 K/mm3 (0.0-0.1) 02/02/17 20:58 Seg Neutrophils % 44.9 % (40.0-70.0) 02/02/17 20:58 Seg Neutrophils # 2.9 K/mm3 (1.8-7.7) 02/02/17 20:58 PT 20.4 Sec. (12.2-14.9) H 02/08/17 07:16 INR 1.64 (0.87-1.13) H 02/08/17 07:16 APTT 46.8 Sec. (24.2-36.6) H 02/02/17 20:58 D-Dimer 190.63 ng/mlDDU (0-234) 02/02/17 20:58 Sodium 137 mmol/L (137-145) 02/06/17 05:30 Potassium 4.4 mmol/L (3.6-5.0) 02/06/17 05:30 Chloride 99.6 mmol/L (98-107) 02/06/17 05:30 Carbon Dioxide 30 mmol/L (22-30) 02/06/17 05:30 Anion Gap 12 mmol/L 02/06/17 05:30 BUN 12 mg/dL (7-17) 02/06/17 05:30 Creatinine 0.5 mg/dL (0.7-1.2) L 02/06/17 05:30 Estimated GFR > 60 ml/min 02/06/17 05:30 BUN/Creatinine Ratio 24 % 02/06/17 05:30 Glucose 91 mg/dL (65-100) 02/06/17 05:30 Calcium 8.6 mg/dL (8.4-10.2) 02/06/17 05:30 Magnesium 1.80 mg/dL (1.7-2.3) 02/06/17 05:30 Total Bilirubin < 0.20 mg/dL (0.1-1.2) 02/02/17 20:58 AST 20 units/L (5-40) 02/02/17 20:58 ALT 21 units/L (7-56) 02/02/17 20:58 Alkaline Phosphatase 105 units/L (35-129) 02/02/17 20:58 NT-Pro-B Natriuret Pep 107.0 pg/mL (0-450) 02/02/17 20:58 Total Protein 6.0 g/dL (6.3-8.2) L 02/02/17 20:58 Albumin 3.5 g/dL (3.9-5) L 02/02/17 20:58 Albumin/Globulin Ratio 1.4 % 02/02/17 20:58
--- NOTE | 2017-02-09 11:26 | Discharge Summary ---
Providers - Providers Date of Admission: 02/03/17 00:27 Attending physician: JOEL BARON 02/03/17 00:27 Consult to Physician [CONS] Routine Consulting Provider: SUSIE BAILEY Reason For Exam: recurrent dvt Place consult to:: dr. bailey/colleen Notified:: office Phone number called:: Was contact made?: Yes If yes, spoke with:: cora Time called:: 09:46 02/03/17 00:40 Consult to Mental Health [CONS] Routine Reason For Exam: behavioral disturbance Place consult to:: psychiatric Notified:: Phone number called:: [phone] Was contact made?: Yes If yes, spoke with:: beltran Time called:: 09:28 02/06/17 14:01 Consult to Physician [CONS] Routine Consulting Provider: BETZAIDA HORTA Reason For Exam: Left lower back painful Carbuncle Place consult to:: dr. horta Notified:: answering Phone number called:: Was contact made?: No Time called:: 15:12 Comment:: left [facility] Primary care physician: KAIT ROSE MD Hospitalization Condition: Stable Hospital course: Patient is a 41-year-old woman with a history of asthma, multiple sclerosis, PTSD, pvd with right bka, major depression disorder, multiple suicide attempts ( "I am a cutter"), tob/etoh/polysubstance abuse and multiple VTEs who presents with left leg swollen. She is from [place] under [facility]. Venous doppler negative of acute DVT. Here for a/c Chronic DVT of left lower extremity INR subtherapeutic, will put on Lovenox and increase Coumadin dose Doppler for ultrasound has been ordered Cystic abscess s/p I-n-d on oral keflex Subtherapeutic INR Bridging with Lovenox, increase Coumadin dose hyper coagulable state Lifelong anticoagulation Hematology consult Major depression Mental health consult bilat LE pitting edema -02/03/17 Transthoracic echocardiogram reported as global ventricular systolic function is normal, estimated EF is 60-65%, mild concentric left ventricular hypertrophy, trace MR, [id number]-[id number] TR, mild hypertension, right ventricular systolic pressure is calculated at 40 mmHg -On lasix, for dep edema Patient wants her morphine 4mg iv q4hrs, trazodone qhs, melantonin. 02/04/17: INR went down, await INR to start increasing then d/c back to [place] 02/05/17: She has a golf ball size soft tender mass, left lower back that was poa, from an injection give at [place], will get u/s, ?hematoma, ?lipoma vs abscess vs other primary 02/06/17: INR still not going up, soft tissue/renal ultrasound pending== >infected cyst s/p i-n-d 02/07/17: INR finally increasing, d/c to [place] in 2-3 days, Surgeon wants to evaluate wound on Wednesday. 02/08/2017: INR decreased again. Dose up to 12mg/day of Warfarin, I Suspect Warfarin resistance, start Eliquis and stop Warfarin. Patient doesn't want to go to [place] because of bad experience but wants to go another psych facility. I d/w Case management, d/c tomorrow to inpatient psych after Surgeon re- evaluated the abscess 02/09/2017: we spoke at depth regarding Eliquis, she took Xarelto in the past and experienced vaginal bleeding, risk/benefit explained in depth. I told her to see baggage clerk regardless of warfarin/eliguis or xarelto. d/w Surgeon. she is ok to be discharge to mental health. also spoke with case management regarding which psych facility. D/c today per Surgeon: 41-year-old female with 1. Left lower back cyst 2. DVT 3. Morbid obesity 4. Bipolar disorder Plan: 1. patient may leave wound open to air and shower 2. complete 7 day course of keflex - end 3. continue anticoagulation- on eliquis 4. If patient wishes to have cyst excised, may follow up as outpatient in surgery clinic when medically cleared to hold eliquis for 3 days perioperatively. 5. ok for dc from surgery standpoint. The plan was discussed with the patient and Dr. Baron." Disposition: DC/TX-65 PSY HOSP/PSY UNIT Time spent for discharge: 37 minutes Core Measure Documentation - Palliative Care Palliative Care/ Comfort Measures: Not Applicable - Core Measures Any of the following diagnoses?: none - VTE Discharge Requirements Deep Vein Thrombosis/Pulmonary Embolism Present on Admission: Yes Has pt received <5 days of overlap therapy or INR<2.0: No (on Eliquis) Anticoagulant overlap therapy prescribed at discharge: No Contraindication No Overlap Therapy order at DC: Not Indicated Exam - Physical Exam Narrative exam: GEN: WDWN, NAD, AWAKE, ALERT, ORIENTATED 3 HEENT: NCAT, EOMI, PERRL, OP Clear NECK: supple, no adenopathy, no thyromegaly, no JVD CVS/HEART: RRR, NORMAL S1S2, NO JVD, pulses present bilaterally CHEST/LUNGS: CTA B, Symmetrical chest expansion, good air entry bilaterally GI/Abdomen: soft, NTND, good bowel sounds, no guarding or rebound /Bladder: no suprapubic tenderness, no CVA or paraspinal tenderness EXT/Skin: no c/c/e, obvious rash bilateral purpura rash on legs/stump, right leg amputated, stump with dependant edema MSK: FROM x 4 Neuro: CN 2-12 grossly intact, no new focal deficits Psych: pressure speech - Constitutional Vitals: Temp Pulse Resp BP Pulse Ox 99.3 F 74 20 96/50 99 02/08/17 16:22 02/09/17 08:06 02/09/17 08:06 02/09/17 08:06 02/09/17 08:06 Plan Activity: fall precautions, other (no strenous activity until cleared by pcp) Diet: regular (patient doesn't want low-salt diet which is recommended) Special Instructions: record daily BP diary Follow up with: FLORENTINO AJ MD [Staff Physician] - 3-5 Days BETZAIDA HORTA DO [Staff Physician] - 6 Weeks (as needed) Prescriptions: Apixaban [Eliquis] 10 mg PO Q12HR #9 day Apixaban [Eliquis] 5 mg PO BID #30 day Cephalexin [Keflex] 500 mg PO Q6HR #5 day
[2017-02-09] MEDS ORDERED: MONISTAT VG SCH ×2 (14:00→21:00)
[2017-02-09] MEDS: DESYREL PO SCH (22:49)
[2017-02-09] MEDS: PEPCID PO SCH (22:49)
[2017-02-10] MEDS: VALIUM PO PRN ×4 (00:15→14:37)
[2017-02-10] MEDS: MORPHINE IV PRN ×4 (00:16→14:38)
[2017-02-10] MEDS: MINIPRESS PO SCH (00:34)
[2017-02-10] MEDS: KEFLEX PO SCH ×3 (00:37→13:38)
[2017-02-10 08:48] VITALS: BP 117/50
[2017-02-10] MEDS: NEURONTIN PO SCH (10:06)
[2017-02-10] MEDS: LASIX PO SCH (10:06)
[2017-02-10] MEDS: THERAGRAN-M Tab PO SCH (10:06)
[2017-02-10] MEDS: ELIQUIS PO SCH (10:06)
--- NOTE | 2017-02-10 12:00 | Progress Note ---
Assessment and Plan Assessment and plan: Patient is a 41-year-old woman with a history of asthma, multiple sclerosis, PTSD, pvd with right bka, major depression disorder, multiple suicide attempts ( "I am a cutter"), tob/etoh/polysubstance abuse and multiple VTEs who presents with left leg swollen. She is from [place] under 1013. Venous doppler negative of acute DVT. Here for a/c Chronic DVT of left lower extremity INR subtherapeutic, will put on Lovenox and increase Coumadin dose Doppler for ultrasound has been ordered Cystic abscess s/p I-n-d on oral keflex Subtherapeutic INR Bridging with Lovenox, increase Coumadin dose hyper coagulable state Lifelong anticoagulation Hematology consult Major depression Mental health consult bilat LE pitting edema -02/03/17 Transthoracic echocardiogram reported as global ventricular systolic function is normal, estimated EF is 60-65%, mild concentric left ventricular hypertrophy, trace MR, [id number] TR, mild hypertension, right ventricular systolic pressure is calculated at 40 mmHg -On lasix, for dep edema Patient wants her morphine 4mg iv q4hrs, trazodone qhs, melantonin. 02/04/17: INR went down, await INR to start increasing then d/c back to [place] 02/05/17: She has a golf ball size soft tender mass, left lower back that was poa, from an injection give at [place], will get u/s, ?hematoma, ?lipoma vs abscess vs other primary 02/06/17: INR still not going up, soft tissue/renal ultrasound pending== >infected cyst s/p i-n-d 02/07/17: INR finally increasing, d/c to [place] in 2-3 days, Surgeon wants to evaluate wound on Wednesday. 02/08/2017: INR decreased again. Dose up to 12mg/day of Warfarin, I Suspect Warfarin resistance, start Eliquis and stop Warfarin. Patient doesn't want to go to [place] because of bad experience but wants to go another psych facility. I d/w Case management, d/c tomorrow to inpatient psych after Surgeon re- evaluated the abscess 02/09/2017: we spoke at depth regarding Eliquis, she took Xarelto in the past and experienced vaginal bleeding, risk/benefit explained in depth. I told her to see sales engineer regardless of warfarin/eliguis or xarelto. d/w Surgeon. she is ok to be discharge to mental health. also spoke with case management regarding which psych facility. D/c today 02/10/17: still waiting on psych placement History Interval history: Patient was seen and examined. Follow-up on current diagnosis. Overnight uneventful. Patient denies any chest pain, shortness breath, nausea/vomiting or severe headaches. Imaging, nursing note, chart, labs and old chart reviewed. Discussed with patient. Hospitalist Physical - Physical exam Narrative exam: GEN: WDWN, NAD, AWAKE, ALERT, ORIENTATED 3 HEENT: NCAT, EOMI, PERRL, OP Clear NECK: supple, no adenopathy, no thyromegaly, no JVD CVS/HEART: RRR, NORMAL S1S2, NO JVD, pulses present bilaterally CHEST/LUNGS: CTA B, Symmetrical chest expansion, good air entry bilaterally GI/Abdomen: soft, NTND, good bowel sounds, no guarding or rebound /Bladder: no suprapubic tenderness, no CVA or paraspinal tenderness EXT/Skin: no c/c/e, obvious rash bilateral purpura rash on legs/stump, right leg amputated, stump with dependant edema MSK: FROM x 4 Neuro: CN 2-12 grossly intact, no new focal deficits Psych: pressure speech - Constitutional Vitals: Temp Pulse Resp BP Pulse Ox 97.9 F 75 20 117/50 96 02/10/17 08:34 02/10/17 08:34 02/10/17 10:07 02/10/17 08:34 02/10/17 08:34 General appearance: Present: no acute distress Results - Labs CBC & Chem 7: 02/06/17 05:30 02/06/17 05:30 Labs: Laboratory Last Values WBC 6.1 K/mm3 (4.5-11.0) 02/06/17 05:30 RBC 3.32 M/mm3 (3.65-5.03) L 02/06/17 05:30 Hgb 10.1 gm/dl (10.1-14.3) 02/06/17 05:30 Hct 29.8 % (30.3-42.9) L 02/06/17 05:30 MCV 90 fl (79-97) 02/06/17 05:30 MCH 31 pg (28-32) 02/06/17 05:30 MCHC 34 % (30-34) 02/06/17 05:30 RDW 13.4 % (13.2-15.2) 02/06/17 05:30 Plt Count 274 K/mm3 (140-440) 02/06/17 05:30 Lymph % (Auto) 43.4 % (13.4-35.0) H 02/02/17 20:58 Crowley % (Auto) 7.3 % (0.0-7.3) 02/02/17 20:58 Eos % (Auto) 3.4 % (0.0-4.3) 02/02/17 20:58 Baso % (Auto) 1.0 % (0.0-1.8) 02/02/17 20:58 Lymph # 2.8 K/mm3 (1.2-5.4) 02/02/17 20:58 Crowley # 0.5 K/mm3 (0.0-0.8) 02/02/17 20:58 Eos # 0.2 K/mm3 (0.0-0.4) 02/02/17 20:58 Baso # 0.1 K/mm3 (0.0-0.1) 02/02/17 20:58 Seg Neutrophils % 44.9 % (40.0-70.0) 02/02/17 20:58 Seg Neutrophils # 2.9 K/mm3 (1.8-7.7) 02/02/17 20:58 PT 20.4 Sec. (12.2-14.9) H 02/08/17 07:16 INR 1.64 (0.87-1.13) H 02/08/17 07:16 APTT 46.8 Sec. (24.2-36.6) H 02/02/17 20:58 D-Dimer 190.63 ng/mlDDU (0-234) 02/02/17 20:58 Sodium 137 mmol/L (137-145) 02/06/17 05:30 Potassium 4.4 mmol/L (3.6-5.0) 02/06/17 05:30 Chloride 99.6 mmol/L (98-107) 02/06/17 05:30 Carbon Dioxide 30 mmol/L (22-30) 02/06/17 05:30 Anion Gap 12 mmol/L 02/06/17 05:30 BUN 12 mg/dL (7-17) 02/06/17 05:30 Creatinine 0.5 mg/dL (0.7-1.2) L 02/06/17 05:30 Estimated GFR > 60 ml/min 02/06/17 05:30 BUN/Creatinine Ratio 24 % 02/06/17 05:30 Glucose 91 mg/dL (65-100) 02/06/17 05:30 Calcium 8.6 mg/dL (8.4-10.2) 02/06/17 05:30 Magnesium 1.80 mg/dL (1.7-2.3) 02/06/17 05:30 Total Bilirubin < 0.20 mg/dL (0.1-1.2) 02/02/17 20:58 AST 20 units/L (5-40) 02/02/17 20:58 ALT 21 units/L (7-56) 02/02/17 20:58 Alkaline Phosphatase 105 units/L (35-129) 02/02/17 20:58 NT-Pro-B Natriuret Pep 107.0 pg/mL (0-450) 02/02/17 20:58 Total Protein 6.0 g/dL (6.3-8.2) L 02/02/17 20:58 Albumin 3.5 g/dL (3.9-5) L 02/02/17 20:58 Albumin/Globulin Ratio 1.4 % 02/02/17 20:58
[2017-02-10] MEDS: PAXIL PO SCH (14:37)
[2017-02-10] MEDS ORDERED: ATIVAN IV ONE ×2 (16:25)
== END 2017-02-10 17:20 | DRG 603 ==
LOC: ED 18:09 → 3A 02-03 00:27
PROVIDERS: ADMIT Internal Medicine; ATTEND Internal Medicine
PROC: 0J973ZZ Drainage of Back Subcutaneous Tissue and Fascia, Percutaneous Approach (ICD-10-PCS; principal; 2017-02-06)
DX: L02.212 Cutaneous abscess of back [any part, except buttock and flank] (principal); Z68.42 Body mass index [BMI] 45.0-49.9, adult; D68.59 Other primary thrombophilia; I82.502 Chronic embolism and thrombosis of unspecified deep veins of left lower extremity; E66.01 Morbid (severe) obesity due to excess calories; Z88.5 Allergy status to narcotic agent; Z88.8 Allergy status to other drugs, medicaments and biological substances; J44.9 Chronic obstructive pulmonary disease, unspecified; F43.10 Post-traumatic stress disorder, unspecified; F31.9 Bipolar disorder, unspecified; F41.9 Anxiety disorder, unspecified; G35 Multiple sclerosis; Z89.511 Acquired absence of right leg below knee; F17.210 Nicotine dependence, cigarettes, uncomplicated; Z79.899 Other long term (current) drug therapy; Z79.01 Long term (current) use of anticoagulants; Z91.5 Personal history of self-harm; Z82.49 Family history of ischemic heart disease and other diseases of the circulatory system; F14.10 Cocaine abuse, uncomplicated; F12.10 Cannabis abuse, uncomplicated; Z86.711 Personal history of pulmonary embolism
CPT/HCPCS: 36415; 74000; 76999; 80048; 80053; 83735; 83880; 85025; 85027; 85379; 85610; 85730; 87116; 93306; 93925; 93970; 96361; 96374; 99285; J1170; J1650; J1885; J1940; J2060; J2270; J7030